=== PATIENT | female | born 1935 | race Caucasian/White ===

== ENCOUNTER 2018-07-14 09:23 | Emergency (ER) | payer MEDICARE, OTHER ==
[2018-07-14 10:00] LABS: #Eosinphils 0.1 thou/uL (0.0-0.7); #Lymphocytes 1.1 thou/uL (1.20-3.40); #Monocytes 0.5 thou/uL (0.11-0.59); #Neutrophils 8.2 thou/uL (1.40-6.50); %Basophils 0.2 % (0.0-1.0); %Eosinophils 0.6 % (0.0-10.0); %Lymphocytes 11.1 % (21.0-51.0); %Monocytes 4.8 % (0.0-10.0); %Neutrophils 83.2 % (42.0-75.0); Hemoglobin 12.1 g/dL (12.0-16.0); Mean Corpuscular HGB CONC 31.1 g/dL (32.0-36.0); Mean Corpuscular Volume 90.1 fL (78.0-98.0); Mean Platelet Volume 8.9 fL (7.4-10.4); Platelet Count 329 thou/uL (130-400); RBC Distribution Width 13.1 % (11.5-14.5); Red Blood Cell (RBC) Count 4.32 mill/uL (4.20-5.40); White Blood Cell (WBC) Count 9.9 thou/uL (4.8-10.8)
[2018-07-14 10:21] LABS: ALT (SGPT) 26 U/L (8-55); AST (SGOT) 38 U/L (5-34); Albumin 3.8 g/dL (3.4-4.8); Alkaline Phosphatase 289 U/L (40-150); Anion Gap 16 mmol/L (10-20); BUN (Urea Nitrogen) 15 mg/dL (9.8-20.1); Bilirubin, Total 0.5 mg/dL (0.2-1.2); Calc. Creatinine Clearance 0 mL/min (70-130); Calcium 10.4 mg/dL (7.8-10.44); Carbon Dioxide 28 mmol/L (23-31); Chloride 97 mmol/L (98-107); Estimated GFR-MDRD 62; Globulin 3.8 g/dL (2.4-3.5); Glucose 130 mg/dL (83-110); Lipase 27 U/L (8-78); Potassium 3.4 mmol/L (3.5-5.1); Protein, Total 7.6 g/dL (6.0-8.3); Sodium 138 mmol/L (136-145)
[2018-07-14] MEDS ORDERED: Ondansetron PF 4 MG/2 ML Vial ONE (11:11)
[2018-07-14 11:27] LABS: Bilirubin Small (Negative); Blood, Urine Negative (Negative); Clarity CLOUDY (Clear); Glucose, Urine (Dipstick) Negative (Negative); Leukocyte Large (Negative); Nitrite Negative (Negative); Protein, Urine (Dipstick) Trace mg/dL (Neg-Trace); Specific Gravity, Urine 1.012 (1.002-1.036); pH, Urine 6.5 (5.0-9.0)
[2018-07-14 11:28] LABS: Hyaline Casts/LPF 7-10 HYALINE CAST LPF (0-3 Hyaline); Pathc Cast-AUWi Flag 2.32 (0-2.49); WBC/HPF 21-50 HPF (0-3)
[2018-07-14 11:40] LABS: Bacteria/HPF 1+ HPF (None Seen)
== END 2018-07-14 12:45 | disposition home or self-care (01) ==
LOC: ERS 09:23
DX: R11.2 Nausea with vomiting, unspecified (principal); R19.7 Diarrhea, unspecified; E78.5 Hyperlipidemia, unspecified; I10 Essential (primary) hypertension
CPT/HCPCS: 36415; 80053; 81003; 81015; 82274; 83690; 85025; 96361; 96374; J2405

== ENCOUNTER 2018-09-14 16:48 | Emergency (ER) | payer MEDICARE, OTHER ==
[2018-09-14] MEDS ORDERED: Lidocaine 1% w/Epinephrine 1:100K 20 ML VIAL ONE (17:09)
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
[2018-09-14] MEDS ORDERED: Bacitracin Zinc 1 Packet ONE (18:01)
== END 2018-09-14 18:21 | disposition home or self-care (01) ==
LOC: ERS 16:48
DX: S51.811A Laceration without foreign body of right forearm, initial encounter (principal); S80.02XA Contusion of left knee, initial encounter; S90.01XA Contusion of right ankle, initial encounter; E78.5 Hyperlipidemia, unspecified; I10 Essential (primary) hypertension; Z79.82 Long term (current) use of aspirin; Z79.899 Other long term (current) drug therapy; V43.52XA Car driver injured in collision with other type car in traffic accident, initial encounter
CPT/HCPCS: 12002; 93005; J2001

== ENCOUNTER 2018-09-16 18:21 | Emergency (ER) | payer MEDICARE ==
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
--- NOTE | 2018-09-16 20:22 | RAD ---
THREE VIEWS RIGHT SHOULDER: 09/16/18 HISTORY: Pain. AP internally, externally and scapular Y-views right shoulder obtained. Three views right shoulder demonstrate no evidence of right shoulder fractures, subluxations or bony lesions. IMPRESSION: Normal three views right shoulder. POS: [facility]
== END 2018-09-16 20:45 | disposition home or self-care (01) ==
LOC: ERS 18:21
DX: S00.03XA Contusion of scalp, initial encounter (principal); M25.511 Pain in right shoulder; E78.5 Hyperlipidemia, unspecified; I10 Essential (primary) hypertension; G89.29 Other chronic pain; V49.9XXA Car occupant (driver) (passenger) injured in unspecified traffic accident, initial encounter
CPT/HCPCS: 70450

== ENCOUNTER 2018-09-26 11:07 | Emergency (ER) | payer MEDICARE | END 2018-09-26 11:59 | disposition home or self-care (01) | LOC: ERS 11:07 | DX: S51.811D Laceration without foreign body of right forearm, subsequent encounter (principal); E78.5 Hyperlipidemia, unspecified; I10 Essential (primary) hypertension; X58.XXXD Exposure to other specified factors, subsequent encounter ==

== ENCOUNTER 2020-06-03 12:05 | Inpatient (IN) | payer MEDICARE ==
[2020-06-03] MEDS ORDERED: Diltiazem 125 MG/25 ML ONE ×2 (12:26→15:38)
[2020-06-03] MEDS ORDERED: Acetaminophen 500 MG TAB ONE (12:26)
--- NOTE | 2020-06-03 12:52 | RAD ---
PORTABLE CHEST: Date: 06/03/2020 HISTORY: Fever and cough. FINDINGS: There is hazy infiltrate in the left lower lobe. Borderline cardiomegaly. Vascularity is upper normal . No significant effusion. IMPRESSION: Left lower lung infiltrate. POS: [facility]
[2020-06-03 13:02] LABS: INR-International Normal Ratio 1.3; PTT 39.6 sec (22.9-36.1); Prothrombin Time 16.9 sec (12.0-14.7)
[2020-06-03 13:08] LABS: Hemoglobin 9.7 g/dL (12.0-16.0); Mean Corpuscular Hemoglobin 31.1 pg (27.0-31.0); Mean Corpuscular Volume 94.2 fL (78.0-98.0); Mean Platelet Volume 9.4 fL (7.4-10.4); Platelet Count 183 thou/uL (130-400); RBC Distribution Width 12.1 % (11.5-14.5); White Blood Cell (WBC) Count 13.7 thou/uL (4.8-10.8)
[2020-06-03 13:11] LABS: ALT (SGPT) 23 U/L (8-55); AST (SGOT) 35 U/L (5-34); Albumin 1.7 g/dL (3.4-4.8); Alkaline Phosphatase 52 U/L (40-110); Anion Gap 15 mmol/L (10-20); BUN (Urea Nitrogen) 16 mg/dL (9.8-20.1); Bilirubin, Total 0.2 mg/dL (0.2-1.2); CK (CPK) 258 U/L (29-168); Calc. Creatinine Clearance 0 mL/min (70-130); Carbon Dioxide 10 mmol/L (23-31); Chloride 79 mmol/L (98-107); Globulin 1.1 g/dL (2.4-3.5); Glucose 78 mg/dL (83-110); Protein, Total 2.8 g/dL (6.0-8.3)
[2020-06-03 13:27] LABS: Band 65 % (5-11); Lymphocytes 4 % (21-51); MDiff Complete? YES; Monocytes 1 % (0-10); Neutrophil 30 % (42-75); Platelet Morphology Comment Appears Adequate; Polychromasia SLIGHT = 2-3 cells (100X) (0-2/hpf); Reflex for Review?? YES
[2020-06-03 13:37] LABS: Potassium 2.7 mmol/L (3.5-5.1); Sodium 101 mmol/L (136-145)
[2020-06-03 13:48] LABS: Bacteria/HPF None Seen HPF (None Seen); Bilirubin Negative (Negative); Blood, Urine 2+ (Negative); Clarity Clear (Clear); Glucose, Urine (Dipstick) Normal (Negative); Ketone, Urine Negative (Negative); Leukocyte 25 Leu/uL (Negative); Nitrite Negative (Negative); Protein, Urine (Dipstick) 30 mg/dL (Neg-Trace); RBC/HPF 0-3 HPF (0-3); Specific Gravity, Urine 1.007 (1.002-1.036); Squamous Epithelial 0-3 HPF (0-3); Urobilinogen Normal mg/dL (Less than 2); WBC/HPF 0-3 HPF (0-3); pH, Urine 6.5 (5.0-9.0)
[2020-06-03] MEDS ORDERED: Piperacillin/Tazobactam 4.5 GM VIAL ONE (14:24)
[2020-06-03] MEDS ORDERED: Magnesium 2 GM/50 ML BAG (IN WATER) ONE (14:24)
[2020-06-03] MEDS ORDERED: Vancomycin 1 GM/200 ML BAG ONE (14:24)
--- NOTE | 2020-06-03 14:39 | CT ---
CT HEAD WITHOUT CONTRAST: INDICATION: Mental status change. Fever. COMPARISON: Comparison is made to head CT 09/16/2018. FINDINGS: Mild cortical volume is stable. Mild chronic ischemic white matter changes appear stable. No eviden ce of mass, hemorrhage, or acute infarct. No interval change. Paranasal sinuses show mucosal opacif ication of the left sphenoid sinus. IMPRESSION: 1. No acute intracranial process. 2. Mucosal opacification of the left sphenoid sinus. POS: [facility]
[2020-06-03] MEDS ORDERED: Potassium Chloride 20 MEQ in Premix Bag 1 BAG IVPB SCH ×2 (14:45→20:00)
[2020-06-03] MEDS ORDERED: Potassium Chloride 20 MEQ TAB ONE (15:16)
[2020-06-03] MEDS ORDERED: Diltiazem 125 MG in Sodium Chloride 0.9% 100 ML IVPB SCH (15:45)
[2020-06-03 16:34] LABS: Troponin I 0.053 ng/mL (< 0.028)
[2020-06-03 16:41] LABS: Anion Gap 18 mmol/L (10-20); BUN (Urea Nitrogen) 20 mg/dL (9.8-20.1); Calc. Creatinine Clearance 0 mL/min (70-130); Calcium 8.3 mg/dL (7.8-10.44); Carbon Dioxide 22 mmol/L (23-31); Chloride 103 mmol/L (98-107); Glucose 133 mg/dL (83-110); Potassium 2.4 mmol/L (3.5-5.1); Sodium 141 mmol/L (136-145)
[2020-06-03] MEDS ORDERED: Magnesium 2 GM/50 ML 2 GM in Premix Bag 1 BAG IVPB SCH (16:45)
[2020-06-03 16:58] LABS: SARS-CoV-2 NAA Rapid Test DETECTED (NotDetected)
[2020-06-03] MEDS: cefTRIAXone\\ROCEPHIN 1 GM in Sodium Chloride 0.9% 100 ML IVPB SCH (17:00)
[2020-06-03] MEDS ORDERED: cefTRIAXone\\ROCEPHIN 1 GM VIAL ONE (18:30)
--- NOTE | 2020-06-03 18:58 | HP ---
PRIMARY CARE PHYSICIAN: Unknown. CHIEF COMPLAINT: Cough and congestion. HISTORY OF PRESENT ILLNESS: Please note that the history of present illness is extremely limited as the patient is a bit confused and there is no family at the bedside and the remainder of the history of present illness is taken from discussion with the nursing staff and review of the records, but Ms. Bojorquez is a pleasant -[id number] female, who has a history of hyperlipidemia and hypertension as well as chronic back pain. She was brought to the emergency room due to complaints of cough and congestion as well as some shortness of breath. She was brought to the emergency room and was evaluated and found to be in atrial fibrillation with rapid ventricular response. A chest x-ray was done, which demonstrated findings consistent with a left lower lobe pneumonia. Later, blood work returned and the results demonstrated that she had a profound hyponatremia with a sodium of 101, and also hypokalemic. And for this reason, she is being admitted. Otherwise, the patient is actually awake and alert, she is sitting in the bed. She appears to be in no acute distress. She is able to converse with me. She denies feeling short of breath at this time. Her only complaint is some pain in her arms, where she had some blood drawn. REVIEW OF SYSTEMS: Unreliable. PAST MEDICAL HISTORY: Taken from the emergency room records and includes hyperlipidemia, hypertension, and chronic back pain. PAST SURGICAL HISTORY: She has had a cholecystectomy, hysterectomy, as well as tonsillectomy and history of lumbar spinal surgery. SOCIAL HISTORY: She denies any alcohol use or drug use. No history of any smoking. ALLERGIES: NO KNOWN DRUG ALLERGIES. FAMILY HISTORY: Unobtainable. CURRENT MEDICATIONS: These are taken from the emergency room records include: 1. Estradiol 0.5 mg p.o. daily. 2. Metformin 500 mg once daily. 3. Amlodipine 10 mg daily. 4. Simvastatin 40 mg daily. 5. Oxybutynin 5 mg p.o. daily. 6. Chlorthalidone 25 mg once daily. 7. Irbesartan 300 mg daily. PHYSICAL EXAMINATION: GENERAL: She is alert and oriented to person. She believes she is in [facility]. She was able to tell me that the month is 1 and when asked about the year she said 20 and then 1. VITAL SIGNS: Blood pressure was 149/76, heart rate 125, respiratory rate of 33, temperature is 100.6, and O2 saturation was 94% on room air. HEENT: Pupils are equal, round, and reactive. Extraocular muscles are intact. Her sclerae anicteric. NECK: There is no jugular venous distention. LUNGS: She has rales primarily in the left base. There was some rhonchi as well, but no wheezing. CARDIOVASCULAR: Her heart rate is irregular and rapid. I did not appreciate any murmurs, clicks, or rubs. ABDOMEN: Soft. It is nontender, nondistended. Positive for bowel sounds. No rebound. No guarding. No organomegaly. EXTREMITIES: She has 1+ edema in the lower extremities. There is no calf tenderness. No joint effusions. NEUROLOGIC: She was able to move all of her extremities, the both the upper and lower extremities. SKIN AND INTEGUMENT: Essentially normal except for mild bruising in her upper extremities. LABORATORY RESULTS: White blood cell count 13.7, hemoglobin 9.7, hematocrit is 29.2, and platelet count was 183. INR 1.3. Chemistry; sodium 101, potassium 2.7, chloride is 79, CO2 is 10, BUN is 16, creatinine 0.55, glucose is 78, calcium 4.0, magnesium 1.0. Urinalysis was significant for leukocyte esterase and trace blood. On her chest x-ray, she did have some evidence of patchy infiltrate in the left lower base and slight cardiomegaly and that is by my reading. She had a CT scan of the brain showing no acute intracranial process. ASSESSMENT: This is a pleasant 85-year-old female who presents with cough and congestion and was found to have a left lower lobe pneumonia. She also has a profound hyponatremia as well as hypokalemia and hypomagnesemia. If the serum sodium is correct, she will need to be admitted to the ICU. I have already placed a call to the athletic training internship authorization rep. 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 We will defer initial management to Nephrology. I spoke with Dr. Abernathy, who says that he would come to assess her and since she is clinically more or less stable at this time, not to provide any interventions currently. 1. Atrial fibrillation with rapid ventricular response. She has been given a dose of Cardizem 20 mg IV. She continues to have an elevated heart rate and therefore, we will place her on a Cardizem drip. We will also get an echocardiogram should her COVID screen come back negative, and consideration will need to be made for anticoagulation. 2. Hypokalemia. We will need to replace possibly due to the thiazide diuretic use. 3. Hypomagnesemia. Also we will need to replace likely due to renal losses. 4. Left lower lobe pneumonia. This is likely a community-acquired pneumonia; therefore, we will place her on antibiotics for community-acquired pneumonia. 5. The patient will be placed on gastrointestinal prophylaxis. Job ID: [id number]
[2020-06-03 20:18] LABS: Troponin I 0.043 ng/mL (< 0.028)
[2020-06-04 04:49] VITALS: BMI 24.0
[2020-06-04 06:50] LABS: Anion Gap 16 mmol/L (10-20); BUN (Urea Nitrogen) 11 mg/dL (9.8-20.1); Calc. Creatinine Clearance 51 mL/min (70-130); Calcium 8.6 mg/dL (7.8-10.44); Carbon Dioxide 27 mmol/L (23-31); Chloride 97 mmol/L (98-107); Glucose 148 mg/dL (83-110); Sodium 138 mmol/L (136-145)
[2020-06-04 06:56] LABS: Potassium 2.1 mmol/L (3.5-5.1)
[2020-06-04] MEDS ORDERED: Magnesium Sulfate 4 GM in Sodium Chloride 0.9% 250 ML 250 ML IVPB SCH (09:15)
[2020-06-04] MEDS ORDERED: Potassium Bicarbonate/Cit Ac 20 MEQ TAB PO SCH ×3 (10:15→22:15)
[2020-06-04] MEDS ORDERED: Diltiazem 125 MG in Sodium Chloride 0.9% 100 ML IVPB SCH (11:15)
[2020-06-04] MEDS ORDERED: Diltiazem 125 MG/25 ML ONE (11:56)
--- NOTE | 2020-06-04 11:56 | CON ---
DATE OF CONSULTATION: HISTORY OF PRESENT ILLNESS: An 85-year-old woman, with no apparent cardiac history, who was admitted with altered mental status and COVID and was noted to have a rapid irregular heart rate. The patient is unable to give a coherent history. She was admitted last night with COVID pneumonia and altered mental status. The patient was noted to have a rapid heart rate. PAST MEDICAL HISTORY: Hypertension, dyslipidemia. PAST SURGICAL HISTORY: Cholecystectomy, hysterectomy, and spinal surgery. SOCIAL HISTORY: Nonsmoker. MEDICATIONS: See nursing list. PHYSICAL EXAMINATION: Deferred due to COVID. Blood pressure is 144/65, heart rate is 100. Physical examination is deferred. LABORATORY RESULTS: Sodium 130, potassium 2.1, chloride 97, bicarbonate 27, BUN 11, and creatinine is 0.76. troponin was 0.043. BNP is 44. White blood cell count 13.7, hemoglobin 9.7 EKG sinus tachycardia with frequent premature atrial contractions. Telemetry. Narrow complex tachycardia. IMPRESSION: 1. Tachycardia, possible multifocal atrial tachycardia 2. COVID pneumonia. 3. Hypokalemia. 4. History of hypertension. This patient presents with COVID pneumonia. She is in some rapid tachycardia on telemetry monitoring. From a cardiac standpoint, I would recommend IV Cardizem to control her heart rate. We will monitor to see if there is any evidence of atrial fibrillation. Continue supportive care. We will follow this patient with you through her hospitalization. Job ID: [id number] MTDD
[2020-06-04] MEDS: Potassium Chloride 40 MEQ in Sodium Chloride 0.9% 250 ML 250 ML IVPB SCH ×2 (12:34→23:04)
[2020-06-04] MEDS ORDERED: Electrolyte Replacement Protocol 1 EACH FS SCH (13:00)
[2020-06-04] MEDS ORDERED: Electrolyte Replacement Protocol FS PRN (13:15)
[2020-06-04 18:24] LABS: Anion Gap 18 mmol/L (10-20); BUN (Urea Nitrogen) 10 mg/dL (9.8-20.1); Calc. Creatinine Clearance 52 mL/min (70-130); Calcium 9.3 mg/dL (7.8-10.44); Carbon Dioxide 28 mmol/L (23-31); Chloride 95 mmol/L (98-107); Glucose 165 mg/dL (83-110); Magnesium 2.1 mg/dL (1.6-2.6); Sodium 138 mmol/L (136-145)
[2020-06-04 18:28] LABS: Potassium 2.5 mmol/L (3.5-5.1)
--- NOTE | 2020-06-04 21:16 | PDOC.HOSPP ---
- Subjective Encounter Date: 06/04/20 Encounter Time: 17:00 Subjective: Patient seen and examined for pneumonia, electrolyte abnormality and cardiac arrhythmia. Symptomatic lipids much better. Denies any chest pain or shortness of breath. On Cardizem drip. - Objective Vital Signs & Weight: Weight Weight 126 lb 15.78 oz Result Diagrams: 06/03/20 12:39 06/04/20 17:48 Additional Labs: Abnormal Lab Results - Last 48 hrs 06/03/20 12:39: WBC 13.7 H, RBC 3.10 L, Hgb 9.7 L, Hct 29.2 L, MCH 31.1 H, Neutrophils % (Manual) 30 L, Band Neuts % (Manual) 65 H, Lymphocytes % (Manual) 4 L 06/03/20 12:39: TSH 3rd Generation 0.3112 L 06/03/20 13:18: Urine Protein 30 A, Urine Blood 2+ A, Ur Leukocyte Esterase 25 A 06/03/20 13:21: SARS-CoV-2 Rap RNA(RT-PCR) DETECTED A* 06/03/20 15:47: Troponin I 0.053 H 06/03/20 15:47: Potassium 2.4 L*, Carbon Dioxide 22 L, Uric Acid 7.0 H 06/03/20 19:36: Troponin I 0.043 H 06/04/20 06:02: Potassium 2.1 L*, Chloride 97 L 06/04/20 17:48: Potassium 2.5 L*, Chloride 95 L, Phosphorus 1.0 L Microbiology - Entire Visit 06/03/20 13:18 Urine voided Urine Culture - Preliminary 06/03/20 12:39 Venous blood - Right Arm Blood Culture - Preliminary Specimen has been received and culture in progress. No Growth to date. 06/03/20 12:37 Venous blood - Left Arm Blood Culture - Preliminary Specimen has been received and culture in progress. No Growth to date. EKG Reviewed by me: Yes (Tachyarrhythmia on telemetry) Hospitalist ROS - Review of Systems Respiratory: reports: cough, dry, SOB with excertion Gastrointestinal: denies: nausea, vomiting, abdominal pain, diarrhea, constipation, melena, hematochezia, other - Medication Medications: Active Medications Generic Name Dose Route Start Last Admin Trade Name Freq PRN Reason Stop Dose Admin Ceftriaxone Sodium 1 gm/ 100 mls @ 200 mls/hr 06/03/20 17:00 06/03/20 17:00 Sodium Chloride IVPB 100 mls Q24HR JIMBO Administration Diltiazem HCl 125 mg/ Sodium 125 mls @ 10 mls/hr 06/04/20 11:15 06/04/20 12:35 Chloride IVPB 125 mls INF JIMBO Administration Protocol 10 MG/HR Sodium Chloride 10 ml 06/04/20 09:00 06/04/20 08:30 Flush - Normal Saline 10 Ml Syringe IVF 10 ml Q12HR JIMBO Administration - Exam General Appearance: ill appearing Neck: supple, symmetric, no JVD, no thyromegaly Heart: no gallops, no rubs Heart - other findings: Regularly irregularNo rubs or gallops Respiratory: normal chest expansion, rales, rhonchi, tachypneic Gastrointestinal: soft, normal bowel sounds, no guarding, no rigidity Extremities: no cyanosis, no clubbing Neurological: no new deficit Musculoskeletal: generalized weakness Psychiatric: normal affect, A&O x 3 Hosp A/P - Plan DVT proph w/SCDs Sepsis due to COVID 19 pneumonia Tachyarrhythmia probably due to multifocal atrial tachycardia Generalized weakness Hypokalemia Hypophosphatemia Hypertension Hyponatremia and hypomagnesemia were due to lab error Plan: Continue telemetry monitoring. Will consult cardiology. Cardizem drip. Replace potassium and phosphorus. Recheck labs later today. Check inflammatory markers. DVT prophylaxis. Consult physical therapy. Home health care evaluation. Continue other medications as above
[2020-06-04] MEDS ORDERED: Potassium Phosphate 30 MMOL in Sodium Chloride 0.9% 500 ML IVPB SCH (22:30)
[2020-06-04] MEDS: cefTRIAXone\\ROCEPHIN 1 GM in Sodium Chloride 0.9% 100 ML IVPB SCH (23:25)
[2020-06-04] MEDS: Doxycycline 100 MG CAP PO SCH (23:26)
[2020-06-05 05:48] LABS: #Basophils 0.1 thou/uL (0.0-0.2); #Lymphocytes 0.8 thou/uL (1.20-3.40); #Monocytes 0.2 thou/uL (0.11-0.59); #Neutrophils 11.5 thou/uL (1.40-6.50); %Basophils 0.8 % (0.0-1.0); %Eosinophils 0.2 % (0.0-10.0); %Lymphocytes 6.6 % (21.0-51.0); %Monocytes 1.5 % (0.0-10.0); %Neutrophils 90.8 % (42.0-75.0); Hemoglobin 11.5 g/dL (12.0-16.0); Mean Corpuscular HGB CONC 33.3 g/dL (32.0-36.0); Mean Corpuscular Hemoglobin 31.3 pg (27.0-31.0); Mean Platelet Volume 9.3 fL (7.4-10.4); Platelet Count 235 thou/uL (130-400); RBC Distribution Width 12.2 % (11.5-14.5); Red Blood Cell (RBC) Count 3.67 mill/uL (4.20-5.40); White Blood Cell (WBC) Count 12.7 thou/uL (4.8-10.8)
[2020-06-05 06:15] LABS: ALT (SGPT) 66 U/L (8-55); AST (SGOT) 106 U/L (5-34); Albumin 3.2 g/dL (3.4-4.8); Alkaline Phosphatase 116 U/L (40-110); Anion Gap 20 mmol/L (10-20); BUN (Urea Nitrogen) 10 mg/dL (9.8-20.1); Bilirubin, Total 0.3 mg/dL (0.2-1.2); Calc. Creatinine Clearance 55 mL/min (70-130); Calcium 8.8 mg/dL (7.8-10.44); Carbon Dioxide 28 mmol/L (23-31); Chloride 96 mmol/L (98-107); Globulin 3.9 g/dL (2.4-3.5); Glucose 124 mg/dL (83-110); Magnesium 1.9 mg/dL (1.6-2.6); Phosphorus 2.8 mg/dL (2.3-4.7); Potassium 3.1 mmol/L (3.5-5.1); Protein, Total 7.1 g/dL (6.0-8.3); Sodium 141 mmol/L (136-145)
[2020-06-05] MEDS ORDERED: Magnesium 2 GM/50 ML 20 GM in Premix Bag 1 BAG IVPB SCH (06:45)
[2020-06-05] MEDS ORDERED: Potassium Chloride 20 MEQ TAB PO SCH (07:00)
[2020-06-05] MEDS: Potassium Bicarbonate/Cit Ac 20 MEQ TAB PO SCH ×3 (07:51→15:57)
[2020-06-05] MEDS: Saccharomyces boulardii 250 MG CAP PO SCH (07:52)
[2020-06-05] MEDS: Famotidine 20 MG TAB PO SCH ×2 (07:52→20:03)
[2020-06-05] MEDS: Doxycycline 100 MG CAP PO SCH ×2 (07:52→20:03)
[2020-06-05] MEDS ORDERED: Potassium Chloride 40 MEQ in Premix Bag 1 BAG IVPB SCH (09:00)
[2020-06-05] MEDS ORDERED: Saccharomyces boulardii 250 MG CAP PO SCH (09:00)
[2020-06-05] MEDS ORDERED: Enoxaparin Sodium 30 MG/0.3 ML SYRINGE SC SCH (09:00)
[2020-06-05] MEDS ORDERED: Albuterol 200 PUFF (6.7GM INHALER) INH PRN (09:03)
[2020-06-05] MEDS: Ascorbic Acid 500 mg Chewable Tablet PO SCH (09:45)
[2020-06-05] MEDS: Enoxaparin Sodium 40 MG/0.4 ML SYRINGE SC SCH (09:46)
[2020-06-05] MEDS: Dexamethasone 4 mg/ml Vial SLOW IVP SCH (09:46)
--- NOTE | 2020-06-05 13:44 | PQF ---
CLINICAL DOCUMENTATION CLARIFICATION FORM: Dear Dr. Carol Vazquez Date: 06/05/20 Please exercise your independent, professional judgment in responding to the clarification form. Clinical indicators are provided on the bottom of this form for your review. Please check appropriate box(es): [ ] Acute Respiratory Failure: [ ] with Hypoxia [ ] with Hypercapnia [ ] Acute On Chronic Respiratory Failure: [ ] with Hypoxia [ ] with Hypercapnia [ ] Acute Respiratory Failure due to: (etiology) [ ] Chronic Respiratory Failure only [ ] with Hypoxia [ ] with Hypercapnia [ ] Hypoxia [ ] Other diagnosis [ ] Unable to determine In addition, please specify: Present on Admission (POA): [ ] Yes [ ] No [ ] Unable to determine For continuity of documentation, please document condition throughout progress notes and discharge summary. Thank You. To be completed by CDI/Coding staff for physician review: CLINICAL INDICATORS - SIGNS / SYMPTOMS / LABS / RESULTS AND LOCATION IN MR Chest X- Ray impression : left lower lung infiltrate ( 06/03) Pulse 125, Resp 33, Temp 100.6, 94% 2L/NC; maximum temp 101, patient presents with cough that started 2 days ago, reports green mucous has been coming up since cough started. Final ED Dx: Left Lower Lobe Pneumonia, Afib w RVR, AMS, Hypokalemia, Hypomagnesemia ( ED Report/ ) 06/03 RISK FACTORS / RESULTS AND LOCATION IN MR Sepsis due to Covid 19 Pneumonia (Pn/ [facility]) 06/04 TREATMENTS / RESULTS AND LOCATION IN MR Supplemental oxygen (06/04 present) Continuous telemetry monitoring (06/04- present) Acute Respiratory Failure: ABG pH < 7.35 or > 7.45; Decreased oxygen saturation (<90% room air or < 95% on oxygen); PCO2 > 50 mm Hg; PO2 < 60 mm Hg; Labored or rapid respirations ARDS: Dx Criteria [[place] ARDS]: Respiratory symptoms within one week of a known clinical insult (e.g. shock, infection, surgery, trauma) Bilateral opacities in CXR/Chest CT not due to CHF or fluid THANK YOU! CDS Signature: Jacqui Figueredo RN Phone #: [phone] Date:05/17/2020 This is a permanent part of the Medical Record [facility]
[2020-06-05] MEDS: Zinc Sulfate 220 MG CAP PO SCH (15:56)
[2020-06-05] MEDS: cefTRIAXone\\ROCEPHIN 1 GM in Sodium Chloride 0.9% 100 ML IVPB SCH (15:57)
--- NOTE | 2020-06-05 18:23 | PDOC.HOSPP ---
- Subjective Encounter Date: 06/05/20 Encounter Time: 15:00 Subjective: Patient seen and examined for respiratory failure due to COVID-19 along with atrial arrhythmia and electrolyte abnormality. Symptomatically feeling better. Has mild dry cough. Short of breath on minimal exertion. Denies any chest pain or palpitations. - Objective Vital Signs & Weight: Vital Signs (12 hours) Temp Pulse Resp BP Pulse Ox 06/05/20 14:46 99 F 98 20 138/74 95 06/05/20 12:45 100.3 F H 97 20 152/73 H 100 06/05/20 09:46 83 06/05/20 08:27 99.9 F H 83 20 133/71 97 Weight Weight 126 lb 15.78 oz I&O: 06/04/20 06/05/20 06/06/20 06:59 06:59 06:59 Intake Total 910 810 Output Total 500 900 Balance 410 -90 Result Diagrams: 06/05/20 04:56 06/05/20 16:18 Additional Labs: Abnormal Lab Results - Last 48 hrs 06/03/20 19:36: Troponin I 0.043 H 06/04/20 06:02: Potassium 2.1 L*, Chloride 97 L 06/04/20 17:48: Potassium 2.5 L*, Chloride 95 L, Phosphorus 1.0 L 06/05/20 04:56: Potassium 3.1 L, Chloride 96 L, AST 106 H, ALT 66 H, Alkaline Phosphatase 116 H, Albumin 3.2 L, Globulin 3.9 H, Albumin/Globulin Ratio 0.8 L 06/05/20 04:56: WBC 12.7 H, RBC 3.67 L, Hgb 11.5 L, Hct 34.5 L, MCH 31.3 H, Neutrophils % 90.8 H, Lymphocytes % 6.6 L, Neutrophils # 11.5 H, Lymphocytes # 0.8 L 06/05/20 04:56: C-Reactive Protein 28.55 H 06/05/20 04:56: Ferritin 1986.51 H 06/05/20 04:56: D-Dimer 3.85 H Microbiology - Entire Visit 06/03/20 13:18 Urine voided Urine Culture - Final 06/03/20 12:39 Venous blood - Right Arm Blood Culture - Preliminary NO GROWTH AT 48 HOURS 06/03/20 12:37 Venous blood - Left Arm Blood Culture - Preliminary NO GROWTH AT 48 HOURS Radiology Reviewed by me: Yes (Chest x-rayleft lower lobe infiltrate) EKG Reviewed by me: Yes (Sinus rhythm with PACs) Hospitalist ROS - Review of Systems Cardiovascular: denies: chest pain, palpitations, orthopnea, paroxysmal noc. dyspnea, edema, light headedness, other Gastrointestinal: denies: nausea, vomiting, abdominal pain, diarrhea, constipation, melena, hematochezia, other - Medication Medications: Active Medications Generic Name Dose Route Start Last Admin Trade Name Garyq PRN Reason Stop Dose Admin Ascorbic Acid 1,000 mg 06/05/20 09:00 06/05/20 09:45 Ascorbic Acid 500 Mg Chewable Tablet PO 1,000 mg DAILY JIMBO Administration Dexamethasone 6 mg 06/05/20 09:00 06/05/20 09:46 Dexamethasone 4 Mg/Ml Vial SLOW IVP 6 mg DAILY JIMBO Administration Diltiazem HCl 120 mg 06/05/20 09:00 06/05/20 09:46 Diltiazem Cd 120 Mg Cap PO 120 mg DAILY JIMBO Administration Doxycycline Hyclate 100 mg 06/04/20 21:00 06/05/20 07:52 Doxycycline 100 Mg Cap PO 100 mg BID JIMBO Administration Enoxaparin Sodium 40 mg 06/05/20 09:00 06/05/20 09:46 Enoxaparin Sodium 40 Mg/0.4 Ml Syringe SC Not Given 899 JIMBO Famotidine 20 mg 06/05/20 09:00 06/05/20 07:52 Famotidine 20 Mg Tab PO 20 mg BID JIMBO Administration Ceftriaxone Sodium 1 gm/ 100 mls @ 200 mls/hr 06/03/20 17:00 06/05/20 15:57 Sodium Chloride IVPB 100 mls Q24HR JIMBO Administration Potassium Bicarbonate/Citric Acid 20 meq 06/05/20 08:00 06/05/20 15:57 Potassium Bicarbonate/Cit Ac 20 Meq Tab PO 20 meq TID-WM JIMBO Administration Saccharomyces Boulardii 250 mg 06/05/20 09:00 06/05/20 07:52 Saccharomyces Boulardii 250 Mg Cap PO 250 mg DAILY JIMBO Administration Saccharomyces Boulardii 250 mg 06/05/20 09:00 06/05/20 07:53 Saccharomyces Boulardii 250 Mg Cap PO Not Given DAILY JIMBO Sodium Chloride 10 ml 06/04/20 09:00 06/05/20 07:53 Flush - Normal Saline 10 Ml Syringe IVF 10 ml Q12HR JIMBO Administration Zinc Sulfate 220 mg 06/05/20 09:00 06/05/20 15:56 Zinc Sulfate 220 Mg Cap PO 220 mg DAILY JIMBO Administration - Exam General Appearance: ill appearing Neck: supple, no JVD Heart: RRR, no gallops, no rubs Respiratory: no wheezes, rales, rhonchi, tachypneic Gastrointestinal: soft, normal bowel sounds, no guarding, no rigidity Extremities: no cyanosis, no clubbing Skin: normal turgor, no lesions Neurological: no new deficit Musculoskeletal: generalized weakness Psychiatric: normal affect, A&O x 3 Hosp A/P - Plan DVT proph w/lovenox, DVT proph w/SCDs Acute hypoxic respiratory failure/sepsis with acute organ dysfunction due to COVID 19 pneumoniaPOA Tachyarrhythmia probably due to multifocal atrial tachycardia S/p Cardizem drip Generalized weakness Hypokalemia Hypophosphatemia Hypertension Hyponatremia and hypomagnesemia were due to lab error Plan: Cardizem drip discontinued. Oral Cardizem started. Will replace potassium which was 3.1 today. Replace magnesium. Other labs were reviewed. Continue Lovenox for DVT prophylaxis. Continue Decadron for pneumonia. Continue empiric antibiotics. Physical therapy. Reduce potassium to 20 MEQ p.o. daily. Monitor inflammatory markers. I discussed the plan of care with patient's granddaughter over the phone. Will consult palliative care.
[2020-06-05] MEDS: Oxybutynin 5 MG TAB PO SCH (20:03)
[2020-06-05] MEDS: Melatonin 3 MG TAB PO PRN (20:03)
[2020-06-06 05:58] LABS: ALT (SGPT) 70 U/L (8-55); AST (SGOT) 73 U/L (5-34); Albumin 3.4 g/dL (3.4-4.8); Alkaline Phosphatase 90 U/L (40-110); Anion Gap 19 mmol/L (10-20); BUN (Urea Nitrogen) 15 mg/dL (9.8-20.1); Bilirubin, Total 0.4 mg/dL (0.2-1.2); Calc. Creatinine Clearance 55 mL/min (70-130); Calcium 9.1 mg/dL (7.8-10.44); Carbon Dioxide 27 mmol/L (23-31); Chloride 94 mmol/L (98-107); Globulin 3.7 g/dL (2.4-3.5); Glucose 180 mg/dL (83-110); Phosphorus 1.3 mg/dL (2.3-4.7); Potassium 3.8 mmol/L (3.5-5.1); Protein, Total 7.1 g/dL (6.0-8.3); Sodium 136 mmol/L (136-145)
[2020-06-06 06:28] LABS: Band 21 % (5-11); Lymphocytes 7 % (21-51); MDiff Complete? YES; Mean Corpuscular HGB CONC 33.3 g/dL (32.0-36.0); Mean Corpuscular Hemoglobin 31.1 pg (27.0-31.0); Mean Corpuscular Volume 93.3 fL (78.0-98.0); Mean Platelet Volume 9.3 fL (7.4-10.4); Metamyelocyte 2 % (0-0); Monocytes 1 % (0-10); Myelocyte 4 % (0-0); Neutrophil 65 % (42-75); Platelet Count 230 thou/uL (130-400); Red Blood Cell (RBC) Count 3.54 mill/uL (4.20-5.40); White Blood Cell (WBC) Count 11.7 thou/uL (4.8-10.8)
[2020-06-06] MEDS ORDERED: Magnesium 2 GM/50 ML 2 GM in Premix Bag 1 BAG IVPB SCH (06:30)
[2020-06-06] MEDS: PHOS-NAK 1 PKT PACK PO SCH ×3 (07:23→14:17)
[2020-06-06] MEDS: Saccharomyces boulardii 250 MG CAP PO SCH ×2 (08:27→19:44)
[2020-06-06] MEDS: Famotidine 20 MG TAB PO SCH (08:27)
[2020-06-06] MEDS: Zinc Sulfate 220 MG CAP PO SCH (08:27)
[2020-06-06] MEDS: Potassium Bicarbonate/Cit Ac 20 MEQ TAB PO SCH (08:27)
[2020-06-06] MEDS: Doxycycline 100 MG CAP PO SCH ×2 (08:27→19:44)
[2020-06-06] MEDS: Ascorbic Acid 500 mg Chewable Tablet PO SCH (08:27)
[2020-06-06] MEDS: Enoxaparin Sodium 40 MG/0.4 ML SYRINGE SC SCH (08:27)
[2020-06-06] MEDS: Dexamethasone 4 mg/ml Vial SLOW IVP SCH (08:28)
[2020-06-06] MEDS: Oxybutynin 5 MG TAB PO SCH ×2 (08:28→19:44)
[2020-06-06] MEDS ORDERED: Potassium Phosphate 15 MMOL in Sodium Chloride 0.9% 250 ML 250 ML IVPB SCH (14:30)
[2020-06-06] MEDS: Loperamide HCl 2 MG CAP PO PRN ×3 (15:16→22:31)
[2020-06-06] MEDS: cefTRIAXone\\ROCEPHIN 1 GM in Sodium Chloride 0.9% 100 ML IVPB SCH (16:52)
--- NOTE | 2020-06-06 19:05 | PDOC.HOSPP ---
- Subjective Encounter Date: 06/06/20 Encounter Time: 16:00 Subjective: Patient seen and examined for respiratory failure/COVID-19 pneumonia. Confused. Intermittent diarrhea. Requiring supplemental oxygen. Was made DNR earlier today. No other overnight events. - Objective Vital Signs & Weight: Vital Signs (12 hours) Temp Pulse Resp BP Pulse Ox 06/06/20 15:26 98.2 F 96 20 161/64 H 96 06/06/20 11:24 98.2 F 95 20 160/74 H 96 06/06/20 08:20 98.2 F 95 21 H 163/76 H 96 Weight Weight 126 lb 15.78 oz I&O: 06/05/20 06/06/20 06/07/20 06:59 06:59 06:59 Intake Total 910 930 300 Output Total 500 900 Balance 410 30 300 Result Diagrams: 06/06/20 04:36 06/06/20 04:36 Additional Labs: Abnormal Lab Results - Last 48 hrs 06/05/20 04:56: Potassium 3.1 L, Chloride 96 L, AST 106 H, ALT 66 H, Alkaline Phosphatase 116 H, Albumin 3.2 L, Globulin 3.9 H, Albumin/Globulin Ratio 0.8 L 06/05/20 04:56: WBC 12.7 H, RBC 3.67 L, Hgb 11.5 L, Hct 34.5 L, MCH 31.3 H, Neutrophils % 90.8 H, Lymphocytes % 6.6 L, Neutrophils # 11.5 H, Lymphocytes # 0.8 L 06/05/20 04:56: C-Reactive Protein 28.55 H 06/05/20 04:56: Ferritin 1986.51 H 06/05/20 04:56: D-Dimer 3.85 H 06/06/20 04:36: Chloride 94 L, Phosphorus 1.3 L, AST 73 H, ALT 70 H, Globulin 3.7 H, Albumin/Globulin Ratio 0.9 L 06/06/20 04:36: WBC 11.7 H, RBC 3.54 L, Hgb 11.0 L, Hct 33.0 L, MCH 31.1 H, Band Neuts % (Manual) 21 H, Lymphocytes % (Manual) 7 L, Myelocytes % 4 H 06/06/20 04:36: C-Reactive Protein 16.52 H 06/06/20 04:36: Ferritin 1559.47 H 06/06/20 04:36: D-Dimer 2.61 H Microbiology - Entire Visit 06/06/20 06:50 Stool C. difficile GDH Antigen & Toxins - Final 06/03/20 13:18 Urine voided Urine Culture - Final 06/03/20 12:39 Venous blood - Right Arm Blood Culture - Preliminary NO GROWTH AT 48 HOURS 06/03/20 12:37 Venous blood - Left Arm Blood Culture - Preliminary NO GROWTH AT 48 HOURS EKG Reviewed by me: Yes (Sinus rhythm on telemetry) Hospitalist ROS - Review of Systems ROS unobtainable: due to mental status - Medication Medications: Active Medications Generic Name Dose Route Start Last Admin Trade Name Freq PRN Reason Stop Dose Admin Ascorbic Acid 1,000 mg 06/05/20 09:00 06/06/20 08:27 Ascorbic Acid 500 Mg Chewable Tablet PO 1,000 mg DAILY JIMBO Administration Dexamethasone 6 mg 06/05/20 09:00 06/06/20 08:28 Dexamethasone 4 Mg/Ml Vial SLOW IVP 6 mg DAILY JIMBO Administration Diltiazem HCl 120 mg 06/06/20 09:00 06/06/20 09:25 Diltiazem Cd 120 Mg Cap PO Not Given BID JIMBO Doxycycline Hyclate 100 mg 06/04/20 21:00 06/06/20 08:27 Doxycycline 100 Mg Cap PO 100 mg BID JIMBO Administration Enoxaparin Sodium 40 mg 06/05/20 09:00 06/06/20 08:27 Enoxaparin Sodium 40 Mg/0.4 Ml Syringe SC 40 mg 0900 JIMBO Administration Famotidine 20 mg 06/05/20 09:00 06/06/20 08:27 Famotidine 20 Mg Tab PO 20 mg BID JIMBO Administration Ceftriaxone Sodium 1 gm/ 100 mls @ 200 mls/hr 06/03/20 17:00 06/06/20 16:52 Sodium Chloride IVPB 100 mls Q24HR JIMBO Administration Loperamide HCl 2 mg 06/06/20 14:25 06/06/20 18:05 Loperamide Hcl 2 Mg Cap PO 2 mg PRN PRN Administration Diarrhea/Loose Stools Melatonin 3 mg 06/05/20 18:32 06/05/20 20:03 Melatonin 3 Mg Tab PO 3 mg HS PRN Administration Insomnia Oxybutynin Chloride 5 mg 06/05/20 21:00 06/06/20 08:28 Oxybutynin 5 Mg Tab PO 5 mg BID JIMBO Administration Potassium Bicarbonate/Citric Acid 20 meq 06/06/20 08:00 06/06/20 08:27 Potassium Bicarbonate/Cit Ac 20 Meq Tab PO 20 meq QAM-WM JIMBO Administration Sodium Chloride 10 ml 06/04/20 09:00 06/06/20 08:27 Flush - Normal Saline 10 Ml Syringe IVF 10 ml Q12HR JIMBO Administration Zinc Sulfate 220 mg 06/05/20 09:00 06/06/20 08:27 Zinc Sulfate 220 Mg Cap PO 220 mg DAILY JIMBO Administration - Exam General Appearance: ill appearing Neck: supple, symmetric, no JVD, no thyromegaly Heart: RRR, no gallops, no rubs, normal peripheral pulses Respiratory: no wheezes, normal chest expansion, rales, rhonchi Gastrointestinal: soft, non-tender, normal bowel sounds, no guarding, no rigidity Extremities: no cyanosis, no clubbing, no edema Psychiatric - other findings: Neuro/psychexam limited Hosp A/P - Plan DVT proph w/SCDs Acute hypoxic respiratory failure/sepsis with acute organ dysfunction due to COVID 19 pneumonia Tachyarrhythmia probably due to multifocal atrial tachycardia S/p Cardizem drip Generalized weakness Hypokalemia Hypophosphatemia Hypomagnesemia Hypertension Hyponatremia and hypomagnesemia on admission were due to lab error Plan: Continue ceftriaxone with doxycycline for pneumonia. Continue dexamethasone 6 mg daily with bronchodilators. Replace magnesium and phosphorus. C. difficile was negative. Inflammatory markers improving. Cardizem dose increased to 120 mg twice daily. Continue other medications as above. A.m. labs. DO NOT RESUSCITATE
[2020-06-06] MEDS: Acetaminophen 325 MG TAB PO PRN (22:31)
[2020-06-07] MEDS: Melatonin 3 MG TAB PO PRN (00:06)
[2020-06-07 05:51] LABS: ALT (SGPT) 82 U/L (8-55); AST (SGOT) 63 U/L (5-34); Albumin 3.5 g/dL (3.4-4.8); Alkaline Phosphatase 87 U/L (40-110); Anion Gap 19 mmol/L (10-20); BUN (Urea Nitrogen) 18 mg/dL (9.8-20.1); Bilirubin, Total 0.3 mg/dL (0.2-1.2); Calc. Creatinine Clearance 55 mL/min (70-130); Calcium 9.1 mg/dL (7.8-10.44); Carbon Dioxide 27 mmol/L (23-31); Chloride 95 mmol/L (98-107); Globulin 3.6 g/dL (2.4-3.5); Glucose 177 mg/dL (83-110); Magnesium 2.2 mg/dL (1.6-2.6); Potassium 3.8 mmol/L (3.5-5.1); Protein, Total 7.1 g/dL (6.0-8.3); Sodium 137 mmol/L (136-145)
[2020-06-07 05:53] LABS: Band 10 % (5-11); Hemoglobin 11.3 g/dL (12.0-16.0); Lymphocytes 13 % (21-51); MDiff Complete? YES; Mean Corpuscular HGB CONC 31.5 g/dL (32.0-36.0); Mean Corpuscular Hemoglobin 29.4 pg (27.0-31.0); Mean Corpuscular Volume 93.1 fL (78.0-98.0); Mean Platelet Volume 9.4 fL (7.4-10.4); Metamyelocyte 3 % (0-0); Monocytes 7 % (0-10); Myelocyte 1 % (0-0); Neutrophil 66 % (42-75); Platelet Count 297 thou/uL (130-400); Platelet Morphology Comment Appears Adequate; RBC Distribution Width 11.9 % (11.5-14.5); Red Blood Cell (RBC) Count 3.83 mill/uL (4.20-5.40); White Blood Cell (WBC) Count 12.5 thou/uL (4.8-10.8)
[2020-06-07 05:56] LABS: Phosphorus 2.7 mg/dL (2.3-4.7)
[2020-06-07] MEDS: Loperamide HCl 2 MG CAP PO PRN (07:57)
[2020-06-07] MEDS: Ascorbic Acid 500 mg Chewable Tablet PO SCH (07:57)
[2020-06-07] MEDS: Doxycycline 100 MG CAP PO SCH ×2 (07:57→21:19)
[2020-06-07] MEDS: Oxybutynin 5 MG TAB PO SCH (07:58)
[2020-06-07] MEDS: Zinc Sulfate 220 MG CAP PO SCH (07:58)
[2020-06-07] MEDS: Saccharomyces boulardii 250 MG CAP PO SCH ×2 (07:58→21:20)
[2020-06-07] MEDS: Enoxaparin Sodium 40 MG/0.4 ML SYRINGE SC SCH (07:59)
[2020-06-07] MEDS: Dexamethasone 4 mg/ml Vial SLOW IVP SCH (08:00)
[2020-06-07] MEDS: Potassium Bicarbonate/Cit Ac 20 MEQ TAB PO SCH (08:02)
--- NOTE | 2020-06-07 08:21 | PDOC.FMACP ---
Advance Care Planning - Problem (1) Pneumonia due to COVID-19 virus Status: Acute Code(s): U07.1 - COVID-19; J12.82 - PNEUMONIA DUE TO CORONAVIRUS DISEASE 2018 (2) Tachyarrhythmia Status: Acute Code(s): R00.0 - TACHYCARDIA, UNSPECIFIED (3) Declining functional status Status: Acute Code(s): R53.81 - OTHER MALAISE (4) Palliative care encounter Status: Acute Code(s): Z51.5 - ENCOUNTER FOR PALLIATIVE CARE (5) Confusion Status: Acute Code(s): R41.0 - DISORIENTATION, UNSPECIFIED - Note Participants: family, palliative care Summary: Palliative care has addressed Advanced Care Planning. The diagnosis, prognosis and goals of care were discussed. Appropriate forms and documentation to accomplish the goals of care were discussed. All questions were answered. No official MPOA, patient lacking medical capacity. As per [place] [employer] patient is decision maker, also communicating with patient daughter. Family elected to transition to [facility] Daughter confirms that if needed they would prefer to discharge home with home health/pt. Communicated with Dr Vazquez. Palliative care will sign off as goal of care addressed and confirmed, patient improving as no longer requires supplemental O2 but remains weak and confused and will most likely benefit with home health in home setting. If we can assist in the future with revisiting goal of care, complex decision making, or support/coping please re consult our team. Thank you for this very appropriate consult. Time Spent (mins): 30
--- NOTE | 2020-06-07 16:00 | PDOC.HOSPP ---
- Subjective Encounter Date: 06/07/20 Encounter Time: 11:00 Subjective: Patient seen and examined for respiratory failure/sepsis due to COVID-19. Requiring restraint. Intermittent confusion. Diarrhea improving. Events noted. - Objective Vital Signs & Weight: Vital Signs (12 hours) Temp Pulse Resp BP Pulse Ox 06/07/20 11:20 98.3 F 80 22 H 168/71 H 95 06/07/20 08:39 93 L 06/07/20 07:55 97.8 F 100 26 H 147/77 H 100 Weight Weight 126 lb 15.78 oz I&O: 06/06/20 06/07/20 06/08/20 06:59 06:59 06:59 Intake Total 930 690 Output Total 900 551 Balance 30 139 Result Diagrams: 06/07/20 04:35 06/07/20 04:35 Additional Labs: Abnormal Lab Results - Last 48 hrs 06/06/20 04:36: Chloride 94 L, Phosphorus 1.3 L, AST 73 H, ALT 70 H, Globulin 3.7 H, Albumin/Globulin Ratio 0.9 L 06/06/20 04:36: WBC 11.7 H, RBC 3.54 L, Hgb 11.0 L, Hct 33.0 L, MCH 31.1 H, Band Neuts % (Manual) 21 H, Lymphocytes % (Manual) 7 L, Myelocytes % 4 H 06/06/20 04:36: C-Reactive Protein 16.52 H 06/06/20 04:36: Ferritin 1559.47 H 06/06/20 04:36: D-Dimer 2.61 H 06/07/20 04:35: Chloride 95 L, AST 63 H, ALT 82 H, Globulin 3.6 H, Albumin/ Globulin Ratio 1.0 L 06/07/20 04:35: WBC 12.5 H, RBC 3.83 L, Hgb 11.3 L, Hct 35.7 L, MCHC 31.5 L, Lymphocytes % (Manual) 13 L, Myelocytes % 1 H Microbiology - Entire Visit 06/06/20 06:50 Stool C. difficile GDH Antigen & Toxins - Final 06/03/20 13:18 Urine voided Urine Culture - Final 06/03/20 12:39 Venous blood - Right Arm Blood Culture - Preliminary NO GROWTH AT 48 HOURS 06/03/20 12:37 Venous blood - Left Arm Blood Culture - Preliminary NO GROWTH AT 48 HOURS EKG Reviewed by me: Yes (Sinus rhythm on telemetry) Hospitalist ROS - Review of Systems ROS unobtainable: due to mental status - Medication Medications: Active Medications Generic Name Dose Route Start Last Admin Trade Name Freq PRN Reason Stop Dose Admin Acetaminophen 650 mg 06/04/20 21:23 06/06/20 22:31 Acetaminophen 325 Mg Tab PO 650 mg Q4H PRN Administration Headache/Fever or Mild Pain Ascorbic Acid 1,000 mg 06/05/20 09:00 06/07/20 07:57 Ascorbic Acid 500 Mg Chewable Tablet PO 1,000 mg DAILY JIMBO Administration Dexamethasone 6 mg 06/05/20 09:00 06/07/20 08:00 Dexamethasone 4 Mg/Ml Vial SLOW IVP 6 mg DAILY JIMBO Administration Diltiazem HCl 120 mg 06/06/20 09:00 06/07/20 07:57 Diltiazem Cd 120 Mg Cap PO 120 mg BID JIMBO Administration Doxycycline Hyclate 100 mg 06/04/20 21:00 06/07/20 07:57 Doxycycline 100 Mg Cap PO 100 mg BID JIMBO Administration Enoxaparin Sodium 40 mg 06/05/20 09:00 06/07/20 07:59 Enoxaparin Sodium 40 Mg/0.4 Ml Syringe SC 40 mg 0900 JIMBO Administration Ceftriaxone Sodium 1 gm/ 100 mls @ 200 mls/hr 06/03/20 17:00 06/06/20 16:52 Sodium Chloride IVPB 100 mls Q24HR JIMBO Administration Loperamide HCl 2 mg 06/06/20 14:25 06/07/20 07:57 Loperamide Hcl 2 Mg Cap PO 2 mg PRN PRN Administration Diarrhea/Loose Stools Melatonin 3 mg 06/05/20 18:32 06/07/20 00:06 Melatonin 3 Mg Tab PO 3 mg HS PRN Administration Insomnia Oxybutynin Chloride 5 mg 06/05/20 21:00 06/07/20 07:58 Oxybutynin 5 Mg Tab PO 5 mg BID JIMBO Administration Pantoprazole Sodium 40 mg 06/07/20 09:00 06/07/20 07:57 Pantoprazole 40 Mg Tab PO 40 mg DAILY JIMBO Administration Potassium Bicarbonate/Citric Acid 20 meq 06/06/20 08:00 06/07/20 08:02 Potassium Bicarbonate/Cit Ac 20 Meq Tab PO 20 meq QAM-WM JIMBO Administration Saccharomyces Boulardii 250 mg 06/06/20 21:00 06/07/20 07:58 Saccharomyces Boulardii 250 Mg Cap PO 250 mg BID JIMBO Administration Sodium Chloride 10 ml 06/04/20 09:00 06/07/20 07:59 Flush - Normal Saline 10 Ml Syringe IVF 10 ml Q12HR JIMBO Administration Zinc Sulfate 220 mg 06/05/20 09:00 06/07/20 07:58 Zinc Sulfate 220 Mg Cap PO 220 mg DAILY JIMBO Administration - Exam General Appearance: ill appearing Neck: supple, no JVD Heart: RRR, no gallops Respiratory: rales, rhonchi Gastrointestinal: soft, no guarding, no rigidity Extremities: no cyanosis, no clubbing Neurological - other findings: Neuro/psychexam limited due to current mentation Hosp A/P - Plan DVT proph w/lovenox, DVT proph w/SCDs Acute hypoxic respiratory failure/sepsis with acute organ dysfunction due to COVID 19 pneumonia Tachyarrhythmia probably due to multifocal atrial tachycardia S/p Cardizem drip Generalized weakness Hypokalemia Hypophosphatemia Hypomagnesemia Hypertension Hyponatremia and hypomagnesemia on admission were due to lab error Plan: Continue supportive care. Will discontinue ceftriaxone after today's dose. Continue doxycycline. Continue Decadron. Wean O2 as tolerated. Heart rate controlled with Cardizem. Continue potassium replacement. Continue other medications as above. Recheck labs with inflammatory markers in a.m. 06/07 Continue ceftriaxone with doxycycline for pneumonia. Continue dexamethasone 6 mg daily with bronchodilators. Replace magnesium and phosphorus. C. difficile was negative. Inflammatory markers improving. Cardizem dose increased to 120 mg twice daily. Continue other medications as above. A.m. labs. DO NOT RESUSCITATE
[2020-06-07] MEDS: cefTRIAXone\\ROCEPHIN 1 GM in Sodium Chloride 0.9% 100 ML IVPB SCH (16:09)
[2020-06-07] MEDS ORDERED: Lorazepam 2 MG/ML VIAL SLOW IVP PRN (16:35)
[2020-06-08 05:33] LABS: Phosphorus 2.3 mg/dL (2.3-4.7)
[2020-06-08 05:37] LABS: ALT (SGPT) 65 U/L (8-55); AST (SGOT) 33 U/L (5-34); Albumin 3.6 g/dL (3.4-4.8); Alkaline Phosphatase 80 U/L (40-110); Anion Gap 17 mmol/L (10-20); BUN (Urea Nitrogen) 20 mg/dL (9.8-20.1); Bilirubin, Total 0.3 mg/dL (0.2-1.2); CRP (Inflammatory) 3.38 mg/dL (= or < 0.5); Calc. Creatinine Clearance 52 mL/min (70-130); Calcium 9.5 mg/dL (7.8-10.44); Carbon Dioxide 26 mmol/L (23-31); Chloride 96 mmol/L (98-107); Globulin 3.4 g/dL (2.4-3.5); Glucose 174 mg/dL (83-110); Potassium 4.5 mmol/L (3.5-5.1); Sodium 134 mmol/L (136-145)
[2020-06-08 05:51] LABS: Lymphocytes 16 % (21-51); MDiff Complete? YES; Mean Corpuscular HGB CONC 32.6 g/dL (32.0-36.0); Mean Corpuscular Hemoglobin 30.3 pg (27.0-31.0); Mean Corpuscular Volume 93.1 fL (78.0-98.0); Mean Platelet Volume 9.4 fL (7.4-10.4); Metamyelocyte 3 % (0-0); Monocytes 4 % (0-10); Myelocyte 2 % (0-0); Neutrophil 73 % (42-75); Platelet Count 337 thou/uL (130-400); Platelet Morphology Comment Appears Adequate; RBC Distribution Width 11.7 % (11.5-14.5); RBC Morphology Normal; Reactive Lymphocytes 2 % (0-10); Red Blood Cell (RBC) Count 3.94 mill/uL (4.20-5.40); White Blood Cell (WBC) Count 14.2 thou/uL (4.8-10.8)
[2020-06-08] MEDS: Doxycycline 100 MG CAP PO SCH ×2 (08:19→19:52)
[2020-06-08] MEDS: Saccharomyces boulardii 250 MG CAP PO SCH ×2 (08:19→19:52)
[2020-06-08] MEDS: Potassium Bicarbonate/Cit Ac 20 MEQ TAB PO SCH (08:20)
[2020-06-08] MEDS: Zinc Sulfate 220 MG CAP PO SCH (08:20)
[2020-06-08] MEDS: Ascorbic Acid 500 mg Chewable Tablet PO SCH (08:20)
[2020-06-08] MEDS: Dexamethasone 4 mg/ml Vial SLOW IVP SCH (08:20)
[2020-06-08] MEDS: Enoxaparin Sodium 40 MG/0.4 ML SYRINGE SC SCH (08:21)
--- NOTE | 2020-06-08 15:56 | PDOC.HOSPP ---
- Subjective Encounter Date: 06/08/20 Encounter Time: 11:30 Subjective: Patient seen and examined for sepsis/respiratory failure due to COVID-19 pneumonia. Confused. Inflammatory markers improving. No other overnight events. - Objective Vital Signs & Weight: Vital Signs (12 hours) Temp Pulse Resp BP Pulse Ox 06/08/20 13:52 98.4 F 93 20 157/91 H 96 06/08/20 08:35 98.2 F 81 16 142/66 H 96 06/08/20 04:20 151/96 H Weight Weight 126 lb 15.78 oz I&O: 06/07/20 06/08/20 06/09/20 06:59 06:59 06:59 Intake Total 690 1260 Output Total 551 Balance 139 1260 Result Diagrams: 06/08/20 04:42 06/08/20 04:42 Additional Labs: Abnormal Lab Results - Last 48 hrs 06/07/20 04:35: Chloride 95 L, AST 63 H, ALT 82 H, Globulin 3.6 H, Albumin/Gl obulin Ratio 1.0 L 06/07/20 04:35: WBC 12.5 H, RBC 3.83 L, Hgb 11.3 L, Hct 35.7 L, MCHC 31.5 L, Lymphocytes % (Manual) 13 L, Myelocytes % 1 H 06/08/20 04:42: Sodium 134 L, Chloride 96 L, ALT 65 H, C-Reactive Protein 3.38 H, Albumin/Globulin Ratio 1.1 L 06/08/20 04:42: Ferritin 612.27 H 06/08/20 04:42: D-Dimer 1.61 H 06/08/20 04:42: WBC 14.2 H, RBC 3.94 L, Lymphocytes % (Manual) 16 L, Myelocytes % 2 H Microbiology - Entire Visit 06/03/20 12:39 Venous blood - Right Arm Blood Culture - Final NO GROWTH IN 5 DAYS 06/03/20 12:37 Venous blood - Left Arm Blood Culture - Final NO GROWTH IN 5 DAYS 06/06/20 06:50 Stool C. difficile GDH Antigen & Toxins - Final 06/03/20 13:18 Urine voided Urine Culture - Final EKG Reviewed by me: Yes (Sinus rhythm on telemetry) Hospitalist ROS - Review of Systems ROS unobtainable: due to mental status - Medication Medications: Active Medications Generic Name Dose Route Start Last Admin Trade Name Freq PRN Reason Stop Dose Admin Acetaminophen 650 mg 06/04/20 21:23 06/06/20 22:31 Acetaminophen 325 Mg Tab PO 650 mg Q4H PRN Administration Headache/Fever or Mild Pain Ascorbic Acid 1,000 mg 06/05/20 09:00 06/08/20 08:20 Ascorbic Acid 500 Mg Chewable Tablet PO 1,000 mg DAILY JIMBO Administration Dexamethasone 6 mg 06/05/20 09:00 06/08/20 08:20 Dexamethasone 4 Mg/Ml Vial SLOW IVP 6 mg DAILY JIMBO Administration Doxycycline Hyclate 100 mg 06/04/20 21:00 06/08/20 08:19 Doxycycline 100 Mg Cap PO 100 mg BID JIMBO Administration Enoxaparin Sodium 40 mg 06/05/20 09:00 06/08/20 08:21 Enoxaparin Sodium 40 Mg/0.4 Ml Syringe SC 40 mg 0900 JIMBO Administration Loperamide HCl 2 mg 06/06/20 14:25 06/07/20 07:57 Loperamide Hcl 2 Mg Cap PO 2 mg PRN PRN Administration Diarrhea/Loose Stools Lorazepam 0.25 mg 06/07/20 16:35 06/07/20 17:19 Lorazepam 2 Mg/Ml Vial SLOW IVP 0.25 mg Q6H PRN Administration Anxiety/Agitation Melatonin 3 mg 06/05/20 18:32 06/07/20 00:06 Melatonin 3 Mg Tab PO 3 mg HS PRN Administration Insomnia Oxybutynin Chloride 5 mg 06/05/20 21:00 06/07/20 07:58 Oxybutynin 5 Mg Tab PO 5 mg BID JIMBO Administration Pantoprazole Sodium 40 mg 06/07/20 09:00 06/08/20 08:19 Pantoprazole 40 Mg Tab PO 40 mg DAILY JMIBO Administration Saccharomyces Boulardii 250 mg 06/06/20 21:00 06/08/20 08:19 Saccharomyces Boulardii 250 Mg Cap PO 250 mg BID JIMBO Administration Sodium Chloride 10 ml 06/04/20 09:00 06/08/20 08:21 Flush - Normal Saline 10 Ml Syringe IVF 10 ml Q12HR JIMBO Administration Zinc Sulfate 220 mg 06/05/20 09:00 06/08/20 08:20 Zinc Sulfate 220 Mg Cap PO 220 mg DAILY JIMBO Administration - Exam General Appearance: ill appearing Heart: RRR, no gallops Respiratory: no wheezes, rales, rhonchi Gastrointestinal: no guarding, no rigidity Extremities: no cyanosis, no clubbing Neurological: no new deficit Neurological - other findings: Neuro/psychexam limited due to current mentation Hosp A/P - Plan DVT proph w/lovenox, DVT proph w/SCDs Acute hypoxic respiratory failure/sepsis with acute organ dysfunction due to COVID 19 pneumonia Tachyarrhythmia probably due to multifocal atrial tachycardia S/p Cardizem drip Generalized weakness Hypokalemia Hypophosphatemia Hypomagnesemia Hypertension Hyponatremia and hypomagnesemia on admission were due to lab error Plan: Inflammatory markers improving. Patient is saturating on room air. Remains confused. Cardizem drip dose increased to 180 mg twice daily. Continue doxycycline with Decadron. Will discontinue potassium supplementation. A.m. labs. DC enteric precautions. 06/07 Continue supportive care. Will discontinue ceftriaxone after today's dose. Continue doxycycline. Continue Decadron. Wean O2 as tolerated. Heart rate controlled with Cardizem. Continue potassium replacement. Continue other medications as above. Recheck labs with inflammatory markers in a.m. 06/06 Continue ceftriaxone with doxycycline for pneumonia. Continue dexamethasone 6 mg daily with bronchodilators. Replace magnesium and phosphorus. C. difficile was negative. Inflammatory markers improving. Cardizem dose increased to 120 mg twice daily. Continue other medications as above. A.m. labs. DO NOT RESUSCITATE
[2020-06-08] MEDS: Melatonin 3 MG TAB PO PRN (19:52)
[2020-06-08] MEDS: Loperamide HCl 2 MG CAP PO PRN (19:52)
[2020-06-09 05:25] LABS: ALT (SGPT) 50 U/L (8-55); AST (SGOT) 18 U/L (5-34); Albumin 3.6 g/dL (3.4-4.8); Alkaline Phosphatase 80 U/L (40-110); Anion Gap 16 mmol/L (10-20); BUN (Urea Nitrogen) 25 mg/dL (9.8-20.1); Bilirubin, Total 0.3 mg/dL (0.2-1.2); Calc. Creatinine Clearance 48 mL/min (70-130); Calcium 9.6 mg/dL (7.8-10.44); Carbon Dioxide 28 mmol/L (23-31); Chloride 97 mmol/L (98-107); Globulin 3.2 g/dL (2.4-3.5); Glucose 221 mg/dL (83-110); Potassium 4.3 mmol/L (3.5-5.1); Protein, Total 6.8 g/dL (6.0-8.3); Sodium 137 mmol/L (136-145)
[2020-06-09 05:38] LABS: Hemoglobin 11.7 g/dL (12.0-16.0); Mean Corpuscular HGB CONC 31.4 g/dL (32.0-36.0); Mean Corpuscular Hemoglobin 29.5 pg (27.0-31.0); Mean Corpuscular Volume 93.8 fL (78.0-98.0); Mean Platelet Volume 9.4 fL (7.4-10.4); Platelet Count 391 thou/uL (130-400); RBC Distribution Width 11.7 % (11.5-14.5); Red Blood Cell (RBC) Count 3.98 mill/uL (4.20-5.40); White Blood Cell (WBC) Count 18.9 thou/uL (4.8-10.8)
[2020-06-09 05:39] LABS: Lymphocytes 11 % (21-51); MDiff Complete? YES; Metamyelocyte 5 % (0-0); Monocytes 3 % (0-10); Neutrophil 81 % (42-75); Platelet Morphology Comment Appears Adequate; RBC Morphology Normal
[2020-06-09] MEDS: Ascorbic Acid 500 mg Chewable Tablet PO SCH (08:30)
[2020-06-09] MEDS: Doxycycline 100 MG CAP PO SCH ×2 (08:30→20:26)
[2020-06-09] MEDS: Dexamethasone 4 mg/ml Vial SLOW IVP SCH (08:30)
[2020-06-09] MEDS: Saccharomyces boulardii 250 MG CAP PO SCH ×2 (08:31→20:26)
[2020-06-09] MEDS: Zinc Sulfate 220 MG CAP PO SCH (08:31)
[2020-06-09] MEDS: Enoxaparin Sodium 40 MG/0.4 ML SYRINGE SC SCH (08:33)
[2020-06-09] MEDS: Loperamide HCl 2 MG CAP PO PRN (20:26)
[2020-06-09] MEDS: Melatonin 3 MG TAB PO PRN (20:26)
--- NOTE | 2020-06-09 20:44 | PDOC.HOSPP ---
- Subjective Encounter Date: 06/09/20 Encounter Time: 12:00 Subjective: Patient seen and examined for respiratory failure due to COVID 19 pneumonia. Remains confused requiring restraint. No other overnight events. Appetite okay. No other overnight events. - Objective Vital Signs & Weight: Vital Signs (12 hours) Temp Pulse Resp BP Pulse Ox 06/09/20 16:00 98.8 F 73 20 153/75 H 95 06/09/20 12:30 98.0 F 85 20 147/75 H 97 06/09/20 08:45 98.0 F 77 20 157/70 H 97 Weight Weight 126 lb 15.78 oz I&O: 06/08/20 06/09/20 06/10/20 06:59 06:59 06:59 Intake Total 1260 720 800 Balance 1260 720 800 Result Diagrams: 06/09/20 04:34 06/09/20 04:34 Additional Labs: Abnormal Lab Results - Last 48 hrs 06/08/20 04:42: Sodium 134 L, Chloride 96 L, ALT 65 H, C-Reactive Protein 3.38 H, Albumin/Globulin Ratio 1.1 L 06/08/20 04:42: Ferritin 612.27 H 06/08/20 04:42: D-Dimer 1.61 H 06/08/20 04:42: WBC 14.2 H, RBC 3.94 L, Lymphocytes % (Manual) 16 L, Myelocytes % 2 H 06/09/20 04:34: Chloride 97 L, BUN 25 H, Albumin/Globulin Ratio 1.1 L 06/09/20 04:34: WBC 18.9 H, RBC 3.98 L, Hgb 11.7 L, MCHC 31.4 L, Neutrophils % (Manual) 81 H, Lymphocytes % (Manual) 11 L Microbiology - Entire Visit 06/03/20 12:39 Venous blood - Right Arm Blood Culture - Final NO GROWTH IN 5 DAYS 06/03/20 12:37 Venous blood - Left Arm Blood Culture - Final NO GROWTH IN 5 DAYS 06/06/20 06:50 Stool C. difficile GDH Antigen & Toxins - Final 06/03/20 13:18 Urine voided Urine Culture - Final EKG Reviewed by me: Yes (Sinus rhythm on telemetry) Hospitalist ROS - Review of Systems ROS unobtainable: due to mental status - Medication Medications: Active Medications Generic Name Dose Route Start Last Admin Trade Name Freq PRN Reason Stop Dose Admin Acetaminophen 650 mg 06/04/20 21:23 06/06/20 22:31 Acetaminophen 325 Mg Tab PO 650 mg Q4H PRN Administration Headache/Fever or Mild Pain Ascorbic Acid 1,000 mg 06/05/20 09:00 06/09/20 08:30 Ascorbic Acid 500 Mg Chewable Tablet PO 1,000 mg DAILY JIMBO Administration Dexamethasone 6 mg 06/05/20 09:00 06/09/20 08:30 Dexamethasone 4 Mg/Ml Vial SLOW IVP 6 mg DAILY JIMBO Administration Diltiazem HCl 180 mg 06/08/20 21:00 06/09/20 20:26 Diltiazem Hcl Cd 180 Mg Capsule PO 180 mg BID JIMBO Administration Doxycycline Hyclate 100 mg 06/04/20 21:00 06/09/20 20:26 Doxycycline 100 Mg Cap PO 100 mg BID JIMBO Administration Enoxaparin Sodium 40 mg 06/05/20 09:00 06/09/20 08:33 Enoxaparin Sodium 40 Mg/0.4 Ml Syringe SC 40 mg 0900 JIMBO Administration Loperamide HCl 2 mg 06/06/20 14:25 06/09/20 20:26 Loperamide Hcl 2 Mg Cap PO 2 mg PRN PRN Administration Diarrhea/Loose Stools Lorazepam 0.25 mg 06/07/20 16:35 06/07/20 17:19 Lorazepam 2 Mg/Ml Vial SLOW IVP 0.25 mg Q6H PRN Administration Anxiety/Agitation Melatonin 3 mg 06/05/20 18:32 06/09/20 20:26 Melatonin 3 Mg Tab PO 3 mg HS PRN Administration Insomnia Oxybutynin Chloride 5 mg 06/05/20 21:00 06/07/20 07:58 Oxybutynin 5 Mg Tab PO 5 mg BID JIMBO Administration Pantoprazole Sodium 40 mg 06/07/20 09:00 06/09/20 08:31 Pantoprazole 40 Mg Tab PO 40 mg DAILY JIMBO Administration Saccharomyces Boulardii 250 mg 06/06/20 21:00 06/09/20 20:26 Saccharomyces Boulardii 250 Mg Cap PO 250 mg BID JIMBO Administration Sodium Chloride 10 ml 06/04/20 09:00 06/09/20 20:26 Flush - Normal Saline 10 Ml Syringe IVF 10 ml Q12HR JIMBO Administration Zinc Sulfate 220 mg 06/05/20 09:00 06/09/20 08:31 Zinc Sulfate 220 Mg Cap PO 220 mg DAILY JIMBO Administration - Exam General Appearance: ill appearing Neck: supple, no JVD Heart: no gallops, no rubs Respiratory: no wheezes, rales, rhonchi Gastrointestinal: soft, non-tender, normal bowel sounds, no guarding, no rigid ity Extremities: no cyanosis Neurological - other findings: Neuro/psychunable to assess due to confusion Musculoskeletal: generalized weakness Hosp A/P - Plan DVT proph w/SCDs Acute hypoxic respiratory failure/sepsis with acute organ dysfunction due to COVID 19 pneumonia Tachyarrhythmia probably due to multifocal atrial tachycardia S/p Cardizem drip Generalized weakness Hypokalemia Hypophosphatemia Hypomagnesemia Hypertension Hyponatremia and hypomagnesemia on admission were due to lab error Plan: Patient remains on room air. Appetite is okay. Remains pleasantly confused. Will check inflammatory markers in a.m. Continue IV Decadron. Continue current dose of Cardizem, doxycycline with Protonix. Continue other medications as above. DC planning. Will consult case folder for home health care set up. DC in a.m. if okay with cardiology 06/08 Inflammatory markers improving. Patient is saturating on room air. Remains confused. Cardizem drip dose increased to 180 mg twice daily. Continue doxycycline with Decadron. Will discontinue potassium supplementation. A.m. labs. DC enteric precautions. 06/07 Continue supportive care. Will discontinue ceftriaxone after today's dose. Continue doxycycline. Continue Decadron. Wean O2 as tolerated. Heart rate controlled with Cardizem. Continue potassium replacement. Continue other medications as above. Recheck labs with inflammatory markers in a.m. 06/06 Continue ceftriaxone with doxycycline for pneumonia. Continue dexamethasone 6 mg daily with bronchodilators. Replace magnesium and phosphorus. C. difficile was negative. Inflammatory markers improving. Cardizem dose increased to 120 mg twice daily. Continue other medications as above. A.m. labs. DO NOT RESUSCITATE
[2020-06-10 05:43] LABS: ALT (SGPT) 39 U/L (8-55); AST (SGOT) 12 U/L (5-34); Albumin 3.4 g/dL (3.4-4.8); Alkaline Phosphatase 71 U/L (40-110); Anion Gap 17 mmol/L (10-20); BUN (Urea Nitrogen) 27 mg/dL (9.8-20.1); Bilirubin, Total 0.3 mg/dL (0.2-1.2); CRP (Inflammatory) 0.92 mg/dL (= or < 0.5); Calc. Creatinine Clearance 47 mL/min (70-130); Calcium 9.6 mg/dL (7.8-10.44); Carbon Dioxide 22 mmol/L (23-31); Chloride 100 mmol/L (98-107); Globulin 2.8 g/dL (2.4-3.5); Glucose 249 mg/dL (83-110); Potassium 4.8 mmol/L (3.5-5.1); Protein, Total 6.2 g/dL (6.0-8.3); Sodium 134 mmol/L (136-145)
[2020-06-10 05:51] LABS: Band 6 % (5-11); Hemoglobin 11.6 g/dL (12.0-16.0); Lymphocytes 14 % (21-51); MDiff Complete? YES; Mean Corpuscular HGB CONC 33.3 g/dL (32.0-36.0); Mean Corpuscular Hemoglobin 31.2 pg (27.0-31.0); Mean Corpuscular Volume 93.8 fL (78.0-98.0); Mean Platelet Volume 9.5 fL (7.4-10.4); Monocytes 3 % (0-10); Neutrophil 74 % (42-75); Platelet Count 399 thou/uL (130-400); Platelet Morphology Comment Appears Adequate; RBC Distribution Width 11.8 % (11.5-14.5); RBC Morphology Normal; Reactive Lymphocytes 3 % (0-10); White Blood Cell (WBC) Count 24.4 thou/uL (4.8-10.8)
--- NOTE | 2020-06-10 07:39 | PDOC.HOSPP ---
- Subjective Encounter Date: 06/10/20 Encounter Time: 10:50 Subjective: Patient without complaints. Alert and oriented to person, place, and situation, but didn't know the year. Spoke with granddaughter and she stated that patient does have confusion on and off at baseline. - Objective Vital Signs & Weight: Vital Signs (12 hours) Temp Pulse Resp BP Pulse Ox 06/10/20 04:30 97.6 F 63 19 150/70 H 96 06/10/20 04:26 96 06/10/20 00:20 98 F 76 22 H 166/76 H 96 06/09/20 20:26 98.6 F 86 18 175/79 H 92 L Weight Weight 126 lb 15.78 oz I&O: 06/09/20 06/10/20 06/11/20 06:59 06:59 06:59 Intake Total 720 1100 Balance 720 1100 Result Diagrams: 06/10/20 04:31 06/10/20 04:31 Hospitalist ROS - Review of Systems Constitutional: denies: fever, chills Respiratory: denies: cough, shortness of breath Cardiovascular: denies: chest pain, palpitations Gastrointestinal: denies: nausea, vomiting, abdominal pain - Medication Medications: Active Medications Generic Name Dose Route Start Last Admin Trade Name Freq PRN Reason Stop Dose Admin Acetaminophen 650 mg 06/04/20 21:23 06/06/20 22:31 Acetaminophen 325 Mg Tab PO 650 mg Q4H PRN Administration Headache/Fever or Mild Pain Ascorbic Acid 1,000 mg 06/05/20 09:00 06/09/20 08:30 Ascorbic Acid 500 Mg Chewable Tablet PO 1,000 mg DAILY JIMBO Administration Dexamethasone 6 mg 06/05/20 09:00 06/09/20 08:30 Dexamethasone 4 Mg/Ml Vial SLOW IVP 6 mg DAILY JIMBO Administration Diltiazem HCl 180 mg 06/08/20 21:00 06/09/20 20:26 Diltiazem Hcl Cd 180 Mg Capsule PO 180 mg BID JIMBO Administration Doxycycline Hyclate 100 mg 06/04/20 21:00 06/09/20 20:26 Doxycycline 100 Mg Cap PO 100 mg BID JIMBO Administration Enoxaparin Sodium 40 mg 06/05/20 09:00 06/09/20 08:33 Enoxaparin Sodium 40 Mg/0.4 Ml Syringe SC 40 mg 0900 JIMBO Administration Loperamide HCl 2 mg 06/06/20 14:25 06/09/20 20:26 Loperamide Hcl 2 Mg Cap PO 2 mg PRN PRN Administration Diarrhea/Loose Stools Lorazepam 0.25 mg 06/07/20 16:35 06/07/20 17:19 Lorazepam 2 Mg/Ml Vial SLOW IVP 0.25 mg Q6H PRN Administration Anxiety/Agitation Melatonin 3 mg 06/05/20 18:32 06/09/20 20:26 Melatonin 3 Mg Tab PO 3 mg HS PRN Administration Insomnia Oxybutynin Chloride 5 mg 06/05/20 21:00 06/07/20 07:58 Oxybutynin 5 Mg Tab PO 5 mg BID JIMBO Administration Pantoprazole Sodium 40 mg 06/07/20 09:00 06/09/20 08:31 Pantoprazole 40 Mg Tab PO 40 mg DAILY JIMBO Administration Saccharomyces Boulardii 250 mg 06/06/20 21:00 06/09/20 20:26 Saccharomyces Boulardii 250 Mg Cap PO 250 mg BID JIMBO Administration Sodium Chloride 10 ml 06/04/20 09:00 06/09/20 20:26 Flush - Normal Saline 10 Ml Syringe IVF 10 ml Q12HR JIMBO Administration Zinc Sulfate 220 mg 06/05/20 09:00 06/09/20 08:31 Zinc Sulfate 220 Mg Cap PO 220 mg DAILY JIMBO Administration - Exam General Appearance: NAD, awake alert ENT: moist mucosa Heart: RRR, no murmur, no gallops, no rubs Respiratory: CTAB, no wheezes, no rales, no ronchi, no tachypnea Gastrointestinal: soft, non-tender, non-distended, normal bowel sounds Extremities: no edema Psychiatric: normal affect, normal behavior, oriented to person, oriented to place Hosp A/P - Plan DVT proph w/SCDs Acute hypoxic respiratory failure/sepsis with acute organ dysfunction due to COVID 19 pneumonia Tachyarrhythmia probably due to multifocal atrial tachycardia S/p Cardizem drip Generalized weakness Hypokalemia Hypophosphatemia Hypomagnesemia Hypertension Hyponatremia and hypomagnesemia on admission were due to lab error Plan: Patient remains on room air. Appetite is okay. Remains pleasantly confused. Did require restraints and Ativan for agitation last night. Inflammatory markers all improving. Significant leukocytosis likely due to Decadron. Continue current dose of Cardizem, doxycycline.. Continue other medications as above. DC planning. Will consult [facility] for home health care set up. Spoke with Dr. Boston and he is ok to d/c from his standpoint. Will d/c home with home health. I did contact the granddaughter and she will be staying with patient and he for the next few days to make sure she is doing well. 06/08 Inflammatory markers improving. Patient is saturating on room air. Remains confused. Cardizem drip dose increased to 180 mg twice daily. Continue doxycycline with Decadron. Will discontinue potassium supplementation. A.m. labs. DC enteric precautions. 06/07 Continue supportive care. Will discontinue ceftriaxone after today's dose. Continue doxycycline. Continue Decadron. Wean O2 as tolerated. Heart rate controlled with Cardizem. Continue potassium replacement. Continue other medications as above. Recheck labs with inflammatory markers in a.m. 06/06 Continue ceftriaxone with doxycycline for pneumonia. Continue dexamethasone 6 mg daily with bronchodilators. Replace magnesium and phosphorus. C. difficile was negative. Inflammatory markers improving. Cardizem dose increased to 120 mg twice daily. Continue other medications as above. A.m. labs. DO NOT RESUSCITATE
[2020-06-10] MEDS: Dexamethasone 4 mg/ml Vial SLOW IVP SCH (08:49)
[2020-06-10] MEDS: Ascorbic Acid 500 mg Chewable Tablet PO SCH (08:49)
[2020-06-10] MEDS: Enoxaparin Sodium 40 MG/0.4 ML SYRINGE SC SCH (08:51)
[2020-06-10] MEDS: Saccharomyces boulardii 250 MG CAP PO SCH (08:51)
[2020-06-10] MEDS: Doxycycline 100 MG CAP PO SCH (08:51)
[2020-06-10] MEDS: Zinc Sulfate 220 MG CAP PO SCH (08:52)
[2020-06-10 15:14] VITALS: BP 141/68
[2020-06-10] MEDS: Acetaminophen 325 MG TAB PO PRN (15:17)
[2020-06-10 17:43] VITALS: TEMP 98.6
--- NOTE | 2020-06-11 06:22 | DIS ---
DATE OF ADMISSION: 06/03/2020 DATE OF DISCHARGE: 06/10/2020 PRIMARY CARE PHYSICIAN: Dr. Dominguez Daniel. REASON FOR ADMISSION: Left lower lobe pneumonia with hyponatremia, hypokalemia, and hypomagnesemia. DIAGNOSES AT DISCHARGE: 1. COVID-19 pneumonia. 2. Acute hypoxic respiratory failure, resolved. 3. Sepsis, resolved. 4. Multifocal atrial tachycardia, resolved. 5. Hypokalemia, resolved. 6. Hypophosphatemia, resolved. 7. Hypomagnesemia, resolved. 8. Hypertension. 9. Hyponatremia was a lab error. 10. 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 PROCEDURE: CT of the brain without contrast, showing no acute intracranial process, but mucosal opacification of the left sphenoid sinus. CONSULTATION: Cardiology, Dr. Boston. SUMMARY OF HOSPITAL COURSE: This is an 85-year-old white female, who was brought into the emergency room with cough and congestion. She also had some confusion. The patient initially was found to have a sodium of 101 and hypokalemia. She was admitted to the ICU. On recheck, sodium, however, was much improved and it was thought this was likely a lab error. She was noted to have a pneumonia on her chest x-ray and was found to be in multifocal atrial tachycardia. The patient was started on Cardizem drip and converted to normal sinus rhythm. She was eventually switched over to oral Cardizem by Dr. Boston and had control of her heart rate. She did have some confusion on and off throughout the hospitalization. Her family, her she lives with, and her granddaughter decided to make her do not attempt resuscitation. She did well during the hospitalization, was off all oxygen, was eating well and speaking well by the time of discharge. She did have some sundowning at nights and did need intermittent restraints and Ativan for agitation. However, on the day of discharge, she was pleasant and oriented to everything, except for the year. DISCHARGE MANAGEMENT: Discharged home with Home Health. ACTIVITY: As tolerated. DIET: Regular diet with Ensure three times a day. THERAPY: Physical therapy and intermediate through home health. FOLLOWUP: Follow up with Dr. Daniel in 2 to 3 weeks. DISCHARGE MEDICATIONS: 1. Diltiazem CD 180 mg twice a day, 60 capsules dispensed. 2. Doxycycline 100 mg twice a day, 6 capsules dispensed. 3. Ditropan 5 mg twice a day. 4. Estradiol 0.5 mg daily. 5. Irbesartan 300 mg daily. 6. Metformin 500 mg extended release two tablets daily. 7. Simvastatin 40 mg at night. 8. The patient is to stop her diuretic and her amlodipine. Arranging the details of this discharge took 32 minutes. Job ID: [id number]
== END 2020-06-10 17:34 | disposition home health service (06) | DRG 871 ==
LOC: ERS 12:05 → ERHOLD 14:29 → 2SW 06-04 20:59
PROVIDERS: ADMIT Internal Medicine; ATTEND Emergency Medicine
PROC: 8E0ZXY6 Isolation (ICD-10-PCS; principal; 2020-06-03)
DX: A41.89 Other specified sepsis (principal); U07.1 COVID-19; J12.82 Pneumonia due to coronavirus disease 2019; J96.01 Acute respiratory failure with hypoxia; J18.9 Pneumonia, unspecified organism; I47.1 Supraventricular tachycardia; Z66 Do not resuscitate; Z51.5 Encounter for palliative care; I48.91 Unspecified atrial fibrillation; I10 Essential (primary) hypertension; E87.6 Hypokalemia; E78.00 Pure hypercholesterolemia, unspecified; E83.39 Other disorders of phosphorus metabolism; G89.29 Other chronic pain; M54.9 Dorsalgia, unspecified; Z90.49 Acquired absence of other specified parts of digestive tract; Z90.710 Acquired absence of both cervix and uterus; Z90.89 Acquired absence of other organs; Z79.899 Other long term (current) drug therapy; Z79.84 Long term (current) use of oral hypoglycemic drugs; Z98.890 Other specified postprocedural states; E83.42 Hypomagnesemia; F03.90 Unspecified dementia, unspecified severity, without behavioral disturbance, psychotic disturbance, mood disturbance, and anxiety
CPT/HCPCS: 0240U; 36415; 70450; 71045; 80048; 80053; 81003; 81015; 82550; 82728; 83605; 83735; 83880; 83930; 84100; 84443; 84484; 84550; 85025; 85060; 85379; 85610; 85730; 86140; 87040; 87086; 87324; 87449; 93005; 96365; 96366; 96367; 96368; 96375; J0696; J1100; J1650; J2060; J2543; J3370; J3475; J3480; J3490; J7030; J7050

== ENCOUNTER 2022-02-07 10:16 | Inpatient (IN) | payer OTHER ==
[2022-02-07 11:17] LABS: #Eosinphils 0.3 thou/uL (0.0-0.7); #Monocytes 0.3 thou/uL (0.11-0.59); #Neutrophils 8.9 thou/uL (1.40-6.50); %Basophils 0.2 % (0.0-1.0); %Lymphocytes 9.3 % (21.0-51.0); %Monocytes 2.6 % (0.0-10.0); Hemoglobin 9.8 g/dL (12.0-16.0); Mean Corpuscular Hemoglobin 27.5 pg (27.0-31.0); Mean Corpuscular Volume 88.6 fL (78.0-98.0); Mean Platelet Volume 9.7 fL (7.4-10.4); Platelet Count 154 thou/uL (130-400); RBC Distribution Width 17.7 % (11.5-14.5); Red Blood Cell (RBC) Count 3.56 mill/uL (4.20-5.40); White Blood Cell (WBC) Count 10.5 thou/uL (4.8-10.8)
[2022-02-07 11:35] LABS: ALT (SGPT) 10 U/L (8-55); AST (SGOT) 7 U/L (5-34); Albumin 3.7 g/dL (3.4-4.8); Alkaline Phosphatase 88 U/L (40-110); Anion Gap 13 mmol/L (10-20); BUN (Urea Nitrogen) 40 mg/dL (9.8-20.1); Bilirubin, Total 0.2 mg/dL (0.2-1.2); Calc. Creatinine Clearance 0 mL/min (70-130); Calcium 9.3 mg/dL (7.8-10.44); Carbon Dioxide 16 mmol/L (23-31); Chloride 116 mmol/L (98-107); Estimated GFR 39; Globulin 3.1 g/dL (2.4-3.5); Glucose 171 mg/dL (83-110); Potassium 4.1 mmol/L (3.5-5.1); Protein, Total 6.8 g/dL (5.8-8.1); Sodium 141 mmol/L (136-145)
[2022-02-07 12:18] LABS: Bacteria/HPF 2+ HPF (None Seen); Bilirubin Negative (Negative); Blood, Urine 1+ (Negative); Clarity Turbid (Clear); Glucose, Urine (Dipstick) 100 mg/dL (Negative); Ketone, Urine Negative (Negative); Leukocyte 500 Leu/uL (Negative); Nitrite Negative (Negative); Protein, Urine (Dipstick) 70 mg/dL (Neg-Trace); Specific Gravity, Urine 1.014 (1.002-1.036); Squamous Epithelial 0-3 HPF (0-3); Urobilinogen Normal mg/dL (Less than 2); WBC/HPF Greater than 50 HPF (0-3); pH, Urine 6.5 (5.0-9.0)
[2022-02-07] MEDS ORDERED: Piperacillin/Tazobactam 4.5 GM VIAL ONE ×2 (12:57→13:13)
[2022-02-07 13:08] LABS: SARS-CoV-2 NAA Rapid Test DETECTED (NotDetected)
[2022-02-07] MEDS ORDERED: Ondansetron PF 4 MG/2 ML Vial IVP PRN (13:44)
[2022-02-07] MEDS ORDERED: Insulin Regular 300 UNITS/3 ML VIAL SC PRN ×2 (13:44)
[2022-02-07] MEDS ORDERED: Ondansetron ODT 4 MG TAB PO PRN (13:44)
[2022-02-07] MEDS ORDERED: Dextrose 50% Abboject 50 ML SYRINGE SLOW IVP PRN (13:44)
[2022-02-07] MEDS ORDERED: Dextrose 5% in Water 1,000 ML IV PRN (13:44)
[2022-02-07] MEDS: Sodium Chloride 0.9% 1,000 ML IV SCH (15:08)
[2022-02-07 15:42] VITALS: BMI 24.3
[2022-02-07 16:19] LABS: Amphetamine Not Detected (NotDetected); Barbiturates Screen Not Detected (NotDetected); Benzodiazepine Screen Not Detected (NotDetected); Cocaine Metabolite Screen Not Detected (NotDetected); Methadone Not Detected (NotDetected); Methamphetamine Not Detected (NotDetected); Opiate Screen Not Detected (NotDetected); Oxycodone Screen Not Detected (NotDetected); Phencyclidine (PCP) Not Detected (NotDetected); THC/Cannabinoid Screen Not Detected (NotDetected); Tricyclic Screen Not Detected (NotDetected)
[2022-02-07] MEDS: Donepezil HCl 5 MG TAB PO SCH (21:16)
[2022-02-07] MEDS: Atorvastatin Calcium 20 MG TAB PO SCH (21:16)
[2022-02-07] MEDS: Oxybutynin 5 MG TAB PO SCH (21:16)
[2022-02-07] MEDS: Piperacillin/Tazobactam 3.375 GM in Sodium Chloride 0.9% 100 ML IVPB SCH (21:21)
[2022-02-08] MEDS: Sodium Chloride 0.9% 1,000 ML IV SCH ×2 (04:59→16:37)
[2022-02-08] MEDS: Piperacillin/Tazobactam 3.375 GM in Sodium Chloride 0.9% 100 ML IVPB SCH ×3 (05:36→20:52)
[2022-02-08 06:44] LABS: #Eosinphils 0.4 thou/uL (0.0-0.7); #Monocytes 0.4 thou/uL (0.11-0.59); #Neutrophils 5.9 thou/uL (1.40-6.50); %Basophils 0.5 % (0.0-1.0); %Eosinophils 4.9 % (0.0-10.0); %Lymphocytes 13.1 % (21.0-51.0); %Monocytes 5.2 % (0.0-10.0); %Neutrophils 76.4 % (42.0-75.0); Hemoglobin 9.3 g/dL (12.0-16.0); Mean Corpuscular HGB CONC 31.5 g/dL (32.0-36.0); Mean Corpuscular Volume 88.9 fL (78.0-98.0); Mean Platelet Volume 8.8 fL (7.4-10.4); Platelet Count 308 thou/uL (130-400); RBC Distribution Width 17.5 % (11.5-14.5); Red Blood Cell (RBC) Count 3.33 mill/uL (4.20-5.40); White Blood Cell (WBC) Count 7.7 thou/uL (4.8-10.8)
[2022-02-08 07:02] LABS: Anion Gap 10 mmol/L (10-20); BUN (Urea Nitrogen) 28 mg/dL (9.8-20.1); Calc. Creatinine Clearance 38 mL/min (70-130); Calcium 9.2 mg/dL (7.8-10.44); Carbon Dioxide 18 mmol/L (23-31); Chloride 120 mmol/L (98-107); Estimated GFR 55; Glucose 149 mg/dL (83-110); Potassium 4.1 mmol/L (3.5-5.1); Sodium 144 mmol/L (136-145)
[2022-02-08] MEDS ORDERED: Non-Formulary Item 1 EACH (Estradiol [Estradiol] 0.5 MG Tablet) PO SCH (09:00)
[2022-02-08] MEDS: Estradiol 1 MG TAB PO SCH (09:56)
[2022-02-08] MEDS: Empagliflozin 25 MG TAB PO SCH (09:56)
[2022-02-08] MEDS: Folic Acid 1 MG TAB PO SCH (09:57)
[2022-02-08] MEDS: Oxybutynin 5 MG TAB PO SCH ×2 (09:57→20:49)
[2022-02-08] MEDS: Docusate 100 MG CAP PO SCH (09:57)
[2022-02-08] MEDS: Acetaminophen 325 MG TAB PO PRN ×2 (11:50→20:48)
[2022-02-08] MEDS: Donepezil HCl 5 MG TAB PO SCH (20:49)
[2022-02-08] MEDS: Atorvastatin Calcium 20 MG TAB PO SCH (20:49)
[2022-02-08] MEDS ORDERED: Baclofen 10 MG TAB PO SCH (23:00)
[2022-02-09] MEDS ORDERED: hydrALAZINE 20 MG/ML VIAL SLOW IVP SCH (04:00)
[2022-02-09] MEDS: Piperacillin/Tazobactam 3.375 GM in Sodium Chloride 0.9% 100 ML IVPB SCH ×3 (05:32→20:34)
[2022-02-09] MEDS: Sodium Chloride 0.9% 1,000 ML IV SCH ×2 (05:34→22:24)
[2022-02-09 06:07] LABS: #Eosinphils 0.4 thou/uL (0.0-0.7); #Lymphocytes 1.3 thou/uL (1.20-3.40); #Monocytes 0.4 thou/uL (0.11-0.59); #Neutrophils 8.9 thou/uL (1.40-6.50); %Basophils 0.4 % (0.0-1.0); %Eosinophils 3.7 % (0.0-10.0); %Lymphocytes 11.9 % (21.0-51.0); %Monocytes 3.8 % (0.0-10.0); %Neutrophils 80.2 % (42.0-75.0); Mean Corpuscular HGB CONC 31.3 g/dL (32.0-36.0); Mean Corpuscular Hemoglobin 27.4 pg (27.0-31.0); Mean Corpuscular Volume 87.5 fL (78.0-98.0); Mean Platelet Volume 8.9 fL (7.4-10.4); Platelet Count 323 thou/uL (130-400); RBC Distribution Width 17.4 % (11.5-14.5); Red Blood Cell (RBC) Count 3.64 mill/uL (4.20-5.40); White Blood Cell (WBC) Count 11.1 thou/uL (4.8-10.8)
[2022-02-09 06:35] LABS: Anion Gap 13 mmol/L (10-20); BUN (Urea Nitrogen) 19 mg/dL (9.8-20.1); Calc. Creatinine Clearance 50 mL/min (70-130); Calcium 9.3 mg/dL (7.8-10.44); Carbon Dioxide 15 mmol/L (23-31); Chloride 114 mmol/L (98-107); Estimated GFR 77; Glucose 129 mg/dL (83-110); Potassium 3.5 mmol/L (3.5-5.1); Sodium 138 mmol/L (136-145)
[2022-02-09] MEDS: Docusate 100 MG CAP PO SCH (09:16)
[2022-02-09] MEDS: Oxybutynin 5 MG TAB PO SCH ×2 (09:16→20:33)
[2022-02-09] MEDS: Folic Acid 1 MG TAB PO SCH (09:16)
[2022-02-09] MEDS: Estradiol 1 MG TAB PO SCH (09:17)
[2022-02-09] MEDS: Empagliflozin 25 MG TAB PO SCH (09:17)
[2022-02-09 19:18] VITALS: TEMP 98
[2022-02-09] MEDS: Atorvastatin Calcium 20 MG TAB PO SCH (20:33)
[2022-02-09] MEDS: Donepezil HCl 5 MG TAB PO SCH (20:33)
[2022-02-09] MEDS: Acetaminophen 325 MG TAB PO PRN (20:33)
[2022-02-10] MEDS: Acetaminophen 325 MG TAB PO PRN (02:30)
[2022-02-10] MEDS: Piperacillin/Tazobactam 3.375 GM in Sodium Chloride 0.9% 100 ML IVPB SCH ×2 (05:19→13:11)
[2022-02-10 07:31] LABS: #Eosinphils 0.1 thou/uL (0.0-0.7); #Lymphocytes 0.8 thou/uL (1.20-3.40); #Monocytes 0.4 thou/uL (0.11-0.59); #Neutrophils 8.8 thou/uL (1.40-6.50); %Basophils 0.1 % (0.0-1.0); %Eosinophils 1.3 % (0.0-10.0); %Monocytes 3.6 % (0.0-10.0); %Neutrophils 87.1 % (42.0-75.0); Hemoglobin 10.8 g/dL (12.0-16.0); Mean Corpuscular HGB CONC 31.5 g/dL (32.0-36.0); Mean Corpuscular Hemoglobin 27.5 pg (27.0-31.0); Mean Corpuscular Volume 87.3 fL (78.0-98.0); Mean Platelet Volume 8.8 fL (7.4-10.4); Platelet Count 343 thou/uL (130-400); RBC Distribution Width 17.7 % (11.5-14.5); Red Blood Cell (RBC) Count 3.94 mill/uL (4.20-5.40); White Blood Cell (WBC) Count 10.1 thou/uL (4.8-10.8)
[2022-02-10 07:39] LABS: Anion Gap 14 mmol/L (10-20); BUN (Urea Nitrogen) 13 mg/dL (9.8-20.1); Calc. Creatinine Clearance 52 mL/min (70-130); Calcium 9.4 mg/dL (7.8-10.44); Carbon Dioxide 17 mmol/L (23-31); Chloride 110 mmol/L (98-107); Estimated GFR 81; Glucose 136 mg/dL (83-110); Magnesium 1.9 mg/dL (1.6-2.6); Potassium 3.4 mmol/L (3.5-5.1); Sodium 138 mmol/L (136-145)
[2022-02-10] MEDS ORDERED: Potassium Bicarbonate/Cit Ac 20 MEQ TAB PO SCH (08:30)
[2022-02-10] MEDS ORDERED: Losartan 25 MG TAB PO SCH (09:00)
[2022-02-10] MEDS: Estradiol 1 MG TAB PO SCH (09:22)
[2022-02-10] MEDS: Empagliflozin 25 MG TAB PO SCH (09:22)
[2022-02-10] MEDS: Oxybutynin 5 MG TAB PO SCH (09:23)
[2022-02-10] MEDS: Folic Acid 1 MG TAB PO SCH (09:23)
[2022-02-10] MEDS: Sodium Chloride 0.9% 1,000 ML IV SCH (09:24)
[2022-02-10 09:27] VITALS: BP 156/78
[2022-02-10 14:05] LABS: Campy jejuni + coli by PCR Negative (Negative); STEC Shiga Toxin 1+2 Negative (Negative); Salmonella spp. by PCR Negative (Negative); Shigella spp + EIEC by PCR Negative (Negative)
== END 2022-02-10 13:55 | disposition home or self-care (01) | DRG 689 ==
LOC: SUATTDRO 10:16 → ERS 10:16 → T4-B 13:18
PROVIDERS: ADMIT Family Medicine; ATTEND Hospitalist
DX: N39.0 Urinary tract infection, site not specified (principal); U07.1 COVID-19; I47.1 Supraventricular tachycardia; N17.9 Acute kidney failure, unspecified; G93.40 Encephalopathy, unspecified; Z66 Do not resuscitate; M54.9 Dorsalgia, unspecified; G89.29 Other chronic pain; E11.9 Type 2 diabetes mellitus without complications; I10 Essential (primary) hypertension; E78.5 Hyperlipidemia, unspecified; F03.90 Unspecified dementia, unspecified severity, without behavioral disturbance, psychotic disturbance, mood disturbance, and anxiety; R19.7 Diarrhea, unspecified; E78.00 Pure hypercholesterolemia, unspecified; R53.1 Weakness; B96.20 Unspecified Escherichia coli [E. coli] as the cause of diseases classified elsewhere; Z88.8 Allergy status to other drugs, medicaments and biological substances; Z79.899 Other long term (current) drug therapy; Z98.890 Other specified postprocedural states; Z90.49 Acquired absence of other specified parts of digestive tract; Z87.440 Personal history of urinary (tract) infections; Z90.710 Acquired absence of both cervix and uterus; Z90.89 Acquired absence of other organs
CPT/HCPCS: 36415; 36416; 71045; 80048; 80053; 80306; 81003; 81015; 83735; 84484; 85025; 86140; 87040; 87086; 87324; 87449; 87505; 93005; J0360; J1815; J2543; J3490; J7050; U0002

== ENCOUNTER 2022-09-22 10:55 | Day surgery (SDC) | payer OTHER ==
[2022-09-21 11:58] VITALS: BMI 24.4
[~2022-09-22 10:55] MED LIST: EPINEPHrine 0.3 MG in Ophthalmic Irrigation Solution 500 ML IRR SCH; Famotidine/PF 20 mg/2ml Vial ONE; GANCICLOVIR SODIUM FS SCH; GANCICLOVIR SODIUM I-VITREAL SCH; Midazolam HCl 2 mg/2 ml Vial ONE; SODIUM CHLORIDE 0.9% FS SCH; SODIUM CHLORIDE 0.9% I-VITREAL SCH; fentaNYL 50 mcg/mL 1 mL Vial ONE
[2022-09-22] MEDS ORDERED: Phenylephrine 2.5% Ophth Soln 5 ML BOT ONE (11:28)
[2022-09-22] MEDS ORDERED: Cyclopentolate 1% Opth Drop 2 ML BOT ONE (11:28)
[2022-09-22] MEDS ORDERED: Ondansetron PF 4 MG/2 ML Vial ONE ×2 (13:01→13:14)
[2022-09-22] MEDS ORDERED: Bupivacaine 0.75% 10 ML VIAL ONE (13:14)
[2022-09-22] MEDS ORDERED: Lidocaine 1% PF 5 ML VIAL ONE (13:14)
[2022-09-22] MEDS ORDERED: Maxitrol 0.1% Opth Oint 3.5 GM TUBE ONE (13:14)
[2022-09-22] MEDS ORDERED: Lidocaine 4% PF 5 ML AMP ONE (13:14)
[2022-09-22] MEDS ORDERED: PROPOFOL 200 MG/20 ML VIAL ONE (13:14)
[2022-09-22] MEDS ORDERED: PHENYLEPHRINE-NS 100 MCG/ML 10 ML SYRINGE ONE (13:14)
[2022-09-22 15:17] LABS: Reference Lab Name LABCORP
[2022-09-22 15:37] LABS: Ref Lab Test Ordered CMV qPCR VIT'FLD
[2022-09-23 10:15] LABS: Varicella Zoster IgG ABS 429 index (Immune >165)
[2022-09-24 07:20] LABS: HSV-2 IgG Type Specific Less than 0.91 index (0.00-0.90)
[2022-09-24 14:38] LABS: Varicella Zoster IgM ABS Less than 0.91 index (0.00-0.90)
== END 2022-09-22 15:49 | disposition home or self-care (01) ==
LOC: SDC 10:55
PROVIDERS: ATTEND Ophthalmology Retina Specialist
PROC: 08T43ZZ Resection of Right Vitreous, Percutaneous Approach (ICD-10-PCS; principal; 2022-09-22)
PROC: 08NE3ZZ Release Right Retina, Percutaneous Approach (ICD-10-PCS; 2022-09-22)
DX: H30.91 Unspecified chorioretinal inflammation, right eye (principal); Q13.89 Other congenital malformations of anterior segment of eye; Z79.2 Long term (current) use of antibiotics; Z79.84 Long term (current) use of oral hypoglycemic drugs; Z79.899 Other long term (current) drug therapy; Z88.8 Allergy status to other drugs, medicaments and biological substances; Z98.41 Cataract extraction status, right eye; Z98.42 Cataract extraction status, left eye; Z96.1 Presence of intraocular lens
CPT/HCPCS: 67041; 86644; 86645; 86695; 86696; 86787 ×2; 87529 ×2; 87798; J3010; J0171; J1570; J2250; J2405; J2704; J3490; S0028

== ENCOUNTER 2022-11-08 21:16 | Inpatient (IN) | payer MEDICARE, OTHER ==
[~2022-11-08 21:16] MED LIST changes: -EPINEPHrine 0.3 MG in Ophthalmic Irrigation Solution 500 ML IRR SCH; -Famotidine/PF 20 mg/2ml Vial ONE; -GANCICLOVIR SODIUM FS SCH; -GANCICLOVIR SODIUM I-VITREAL SCH; +Iopamidol-370 76% 500 ML MDV (1 ML CHARGE) ONE; -Midazolam HCl 2 mg/2 ml Vial ONE; -SODIUM CHLORIDE 0.9% FS SCH; -SODIUM CHLORIDE 0.9% I-VITREAL SCH; -fentaNYL 50 mcg/mL 1 mL Vial ONE
[2022-11-08] MEDS ORDERED: Naloxone HCl 0.4 mg/ml Vial ONE (21:46)
[2022-11-08] MEDS ORDERED: Naloxone HCl 2 mg/2 ml Syringe ONE ×2 (21:51→21:52)
[2022-11-08 22:35] LABS: #Monocytes 0.5 thou/uL (0.11-0.59); #Neutrophils 11.8 thou/uL (1.40-6.50); %Basophils 0.2 % (0.0-1.0); %Eosinophils 0.1 % (0.0-10.0); %Lymphocytes 9.2 % (21.0-51.0); %Monocytes 3.3 % (0.0-10.0); %Neutrophils 86.9 % (42.0-75.0); Hemoglobin 13.6 g/dL (12.0-16.0); Mean Corpuscular HGB CONC 28.9 g/dL (32.0-36.0); Mean Corpuscular Hemoglobin 25.6 pg (27.0-31.0); Mean Corpuscular Volume 88.5 fl (78.0-98.0); Platelet Count 304 10x3/uL (130-400); RBC Distribution Width 21.8 % (11.5-14.5); Red Blood Cell (RBC) Count 5.32 mill/uL (4.20-5.40); White Blood Cell (WBC) Count 13.6 10x3/uL (4.8-10.8)
[2022-11-08 22:40] LABS: ALT (SGPT) 10 U/L (8-55); AST (SGOT) 13 U/L (5-34); Albumin 3.4 g/dL (3.4-4.8); Alkaline Phosphatase 76 U/L (40-110); Anion Gap 12 mmol/L (10-20); BUN (Urea Nitrogen) 18 mg/dL (9.8-20.1); Bilirubin, Total 0.2 mg/dL (0.2-1.2); Calc. Creatinine Clearance 0 mL/min (70-130); Calcium 9.2 mg/dL (7.8-10.44); Carbon Dioxide 19 mmol/L (23-31); Chloride 115 mmol/L (98-107); Estimated GFR 57; Globulin 2.7 g/dL (2.4-3.5); Glucose 107 mg/dL (83-110); Potassium 4.2 mmol/L (3.5-5.1); Protein, Total 6.1 g/dL (5.8-8.1); Sodium 142 mmol/L (136-145)
[2022-11-08] MEDS ORDERED: Dextrose 5% in Water 1,000 ML IV PRN (23:45)
[2022-11-08] MEDS ORDERED: Dextrose 50% Abboject 50 ML SYRINGE SLOW IVP PRN (23:45)
[2022-11-08] MEDS ORDERED: Glucagon 1 MG/ML KIT IM PRN (23:45)
[2022-11-08] MEDS ORDERED: hydrALAZINE 20 MG/ML VIAL SLOW IVP PRN (23:47)
[2022-11-09] MEDS ORDERED: Azithromycin 500 MG VIAL ONE (00:09)
[2022-11-09] MEDS ORDERED: cefTRIAXone (ROCEPHIN) 2 GM VIAL ONE (00:09)
[2022-11-09 00:14] LABS: Bacteria/HPF None Seen HPF (None Seen); Bilirubin Negative (Negative); Blood, Urine Trace (Negative); CAUTI Indications for Culture Alt mental st,lethar; Clarity Turbid (Clear); Glucose, Urine (Dipstick) Normal (Negative); Ketone, Urine 10 mg/dL (Negative); Leukocyte 500 Leu/uL (Negative); Nitrite Negative (Negative); Protein, Urine (Dipstick) 50 mg/dL (Neg-Trace); RBC/HPF 0-3 HPF (0-3); Squamous Epithelial 0-3 HPF (0-3); Urobilinogen Normal mg/dL (Less than 2); WBC/HPF Greater than 50 HPF (0-3)
[2022-11-09 00:15] LABS: Specific Gravity, Urine 1.048 (1.002-1.036)
[2022-11-09 00:16] LABS: Urine Culture Reflex Yes Yes
[2022-11-09 00:20] LABS: Amphetamine Not Detected (NotDetected); Barbiturates Screen Not Detected (NotDetected); Benzodiazepine Screen Detected (NotDetected); Cocaine Metabolite Screen Not Detected (NotDetected); Methadone Not Detected (NotDetected); Methamphetamine Not Detected (NotDetected); Opiate Screen Not Detected (NotDetected); Oxycodone Screen Not Detected (NotDetected); Phencyclidine (PCP) Not Detected (NotDetected); THC/Cannabinoid Screen Not Detected (NotDetected); Tricyclic Screen Not Detected (NotDetected)
[2022-11-09 04:00] VITALS: BMI 22.3
[2022-11-09 04:35] LABS: #Basophils 0.1 thou/uL (0.0-0.2); #Eosinphils 0.1 thou/uL (0.0-0.7); #Monocytes 0.8 thou/uL (0.11-0.59); #Neutrophils 14.9 thou/uL (1.40-6.50); %Basophils 0.3 % (0.0-1.0); %Eosinophils 0.4 % (0.0-10.0); %Lymphocytes 11.1 % (21.0-51.0); %Monocytes 4.5 % (0.0-10.0); %Neutrophils 82.9 % (42.0-75.0); Mean Corpuscular HGB CONC 29.6 g/dL (32.0-36.0); Mean Corpuscular Hemoglobin 25.6 pg (27.0-31.0); Mean Corpuscular Volume 86.5 fl (78.0-98.0); Mean Platelet Volume 9.9 fL (7.4-10.4); RBC Distribution Width 21.1 % (11.5-14.5); Red Blood Cell (RBC) Count 3.94 mill/uL (4.20-5.40)
[2022-11-09 04:44] LABS: Hemoglobin 10.1 g/dL (12.0-16.0)
[2022-11-09 04:45] LABS: Platelet Count 404 10x3/uL (130-400)
[2022-11-09 05:06] LABS: Anion Gap 14 mmol/L (10-20); BUN (Urea Nitrogen) 16 mg/dL (9.8-20.1); Calc. Creatinine Clearance 37 mL/min (70-130); Calcium 9.5 mg/dL (7.8-10.44); Carbon Dioxide 19 mmol/L (23-31); Chloride 116 mmol/L (98-107); Estimated GFR 59; Glucose 99 mg/dL (83-110); Magnesium 2.1 mg/dL (1.6-2.6); Potassium 3.4 mmol/L (3.5-5.1); Sodium 146 mmol/L (136-145)
[2022-11-09] MEDS ORDERED: Electrolyte Replacement Protocol 1 EACH FS SCH (08:30)
[2022-11-09] MEDS ORDERED: Potassium Chloride 40 MEQ in Sodium Chloride 0.45% 1,000 ML IV SCH (08:30)
[2022-11-09] MEDS ORDERED: Electrolyte Replacement Protocol FS PRN (09:00)
[2022-11-09] MEDS ORDERED: HumaLOG 300 UNITS/3 ML VIAL SC PRN ×2 (09:18)
[2022-11-09 09:20] LABS: Magnesium 1.9 mg/dL (1.6-2.6)
[2022-11-09] MEDS ORDERED: Cefepime 1 GM VIAL ONE ×2 (09:23→20:40)
[2022-11-09] MEDS ORDERED: Potassium Chloride 20 MEQ/100 ML PREMIX BAG ONE (09:23)
[2022-11-09] MEDS: Cefepime 1 GM in Sodium Chloride 0.9% 100 ML IVPB SCH ×2 (09:33→21:01)
[2022-11-09] MEDS: Potassium Chloride 20 MEQ in Premix Bag 1 BAG IVPB SCH ×2 (09:56→12:10)
[2022-11-09] MEDS ORDERED: Magnesium 2 GM/50 ML(in water) 2 GM in Premix Bag 1 BAG IVPB SCH (10:00)
[2022-11-09] MEDS ORDERED: Magnesium 2 GM/50 ML BAG (IN WATER) ONE (10:58)
[2022-11-09 17:13] LABS: Potassium 4.7 mmol/L (3.5-5.1)
[2022-11-09] MEDS: Azithromycin 500 MG in Sodium Chloride 0.9% 250 ML 250 ML IVPB SCH (23:38)
[2022-11-09] MEDS ORDERED: cefTRIAXone\\ROCEPHIN 2 GM in Sodium Chloride 0.9% 100 ML IVPB SCH (23:45)
[2022-11-10 08:22] LABS: #Basophils 0.1 thou/uL (0.0-0.2); #Eosinphils 0.2 thou/uL (0.0-0.7); #Monocytes 0.6 thou/uL (0.11-0.59); #Neutrophils 14.6 thou/uL (1.40-6.50); %Basophils 0.5 % (0.0-1.0); %Lymphocytes 6.7 % (21.0-51.0); %Monocytes 3.6 % (0.0-10.0); %Neutrophils 87.1 % (42.0-75.0); Hemoglobin 10.7 g/dL (12.0-16.0); Mean Corpuscular HGB CONC 28.9 g/dL (32.0-36.0); Mean Corpuscular Hemoglobin 25.8 pg (27.0-31.0); Mean Corpuscular Volume 89.2 fl (78.0-98.0); Mean Platelet Volume 10.2 fL (7.4-10.4); Platelet Count 433 10x3/uL (130-400); RBC Distribution Width 21.1 % (11.5-14.5); Red Blood Cell (RBC) Count 4.15 mill/uL (4.20-5.40); White Blood Cell (WBC) Count 16.8 10x3/uL (4.8-10.8)
[2022-11-10] MEDS: Cefepime 1 GM in Sodium Chloride 0.9% 100 ML IVPB SCH (08:22)
[2022-11-10 08:51] LABS: Anion Gap 13 mmol/L (10-20); BUN (Urea Nitrogen) 11 mg/dL (9.8-20.1); Calc. Creatinine Clearance 36 mL/min (70-130); Carbon Dioxide 19 mmol/L (23-31); Chloride 110 mmol/L (98-107); Estimated GFR 60; Glucose 125 mg/dL (83-110); Potassium 3.9 mmol/L (3.5-5.1); Sodium 138 mmol/L (136-145)
[2022-11-10 09:05] LABS: CellaVision Operator ID LAB.GE; Platelet Adequacy Comment Platelets Increased; Polychromasia MODERATE = 3-4 cells HPF (0-2)
[2022-11-10] MEDS ORDERED: Iopamidol-370 76% 500 ML MDV (1 ML CHARGE) ONE (09:26)
[2022-11-10] MEDS: Losartan 25 MG TAB PO SCH (21:03)
[2022-11-10] MEDS ORDERED: Melatonin 3 MG TAB PO PRN (21:25)
[2022-11-11] MEDS: Cefepime 1 GM in Sodium Chloride 0.9% 100 ML IVPB SCH ×3 (00:30→20:47)
[2022-11-11] MEDS: Azithromycin 500 MG in Sodium Chloride 0.9% 250 ML 250 ML IVPB SCH (01:21)
[2022-11-11] MEDS: Escitalopram Oxalate 10 mg Tablet PO SCH (08:25)
[2022-11-11 10:42] LABS: #Monocytes 0.7 thou/uL (0.11-0.59); #Neutrophils 14.6 thou/uL (1.40-6.50); %Basophils 0.2 % (0.0-1.0); %Eosinophils 0.2 % (0.0-10.0); %Lymphocytes 5.8 % (21.0-51.0); %Monocytes 4.3 % (0.0-10.0); Hemoglobin 9.7 g/dL (12.0-16.0); Mean Corpuscular HGB CONC 30.1 g/dL (32.0-36.0); Mean Corpuscular Hemoglobin 25.7 pg (27.0-31.0); Mean Corpuscular Volume 85.4 fl (78.0-98.0); Mean Platelet Volume 10.6 fL (7.4-10.4); Platelet Count 457 10x3/uL (130-400); RBC Distribution Width 20.4 % (11.5-14.5); Red Blood Cell (RBC) Count 3.77 mill/uL (4.20-5.40); White Blood Cell (WBC) Count 16.4 10x3/uL (4.8-10.8)
[2022-11-11 11:04] LABS: Anion Gap 12 mmol/L (10-20); BUN (Urea Nitrogen) 10 mg/dL (9.8-20.1); Calc. Creatinine Clearance 37 mL/min (70-130); Calcium 9.7 mg/dL (7.8-10.44); Carbon Dioxide 21 mmol/L (23-31); Chloride 105 mmol/L (98-107); Estimated GFR 61; Glucose 194 mg/dL (83-110); Potassium 3.9 mmol/L (3.5-5.1); Sodium 134 mmol/L (136-145)
[2022-11-11] MEDS: Losartan 25 MG TAB PO SCH (20:47)
[2022-11-11] MEDS: Melatonin 3 MG TAB PO PRN (20:48)
[2022-11-12] MEDS: Azithromycin 500 MG in Sodium Chloride 0.9% 250 ML 250 ML IVPB SCH (00:23)
[2022-11-12 04:46] LABS: #Basophils 0.1 thou/uL (0.0-0.2); #Eosinphils 0.2 thou/uL (0.0-0.7); #Monocytes 0.8 thou/uL (0.11-0.59); #Neutrophils 9.4 thou/uL (1.40-6.50); %Basophils 0.4 % (0.0-1.0); %Eosinophils 1.3 % (0.0-10.0); %Lymphocytes 11.9 % (21.0-51.0); %Neutrophils 78.9 % (42.0-75.0); Hemoglobin 10.3 g/dL (12.0-16.0); Mean Corpuscular HGB CONC 29.1 g/dL (32.0-36.0); Mean Corpuscular Hemoglobin 25.2 pg (27.0-31.0); Mean Corpuscular Volume 86.8 fl (78.0-98.0); Mean Platelet Volume 10.9 fL (7.4-10.4); Platelet Count 432 10x3/uL (130-400); RBC Distribution Width 20.3 % (11.5-14.5); Red Blood Cell (RBC) Count 4.08 mill/uL (4.20-5.40); White Blood Cell (WBC) Count 11.9 10x3/uL (4.8-10.8)
[2022-11-12 05:10] LABS: Anion Gap 13 mmol/L (10-20); BUN (Urea Nitrogen) 9 mg/dL (9.8-20.1); Calc. Creatinine Clearance 37 mL/min (70-130); Calcium 10.2 mg/dL (7.8-10.44); Carbon Dioxide 21 mmol/L (23-31); Chloride 105 mmol/L (98-107); Estimated GFR 62; Glucose 122 mg/dL (83-110); Sodium 135 mmol/L (136-145)
[2022-11-12] MEDS: Cefepime 1 GM in Sodium Chloride 0.9% 100 ML IVPB SCH (10:14)
[2022-11-12] MEDS: Escitalopram Oxalate 10 mg Tablet PO SCH (10:15)
[2022-11-12] MEDS: hydrALAZINE 25 MG TAB PO SCH ×2 (14:31→20:05)
[2022-11-12] MEDS: Melatonin 3 MG TAB PO PRN (20:04)
[2022-11-12] MEDS: Losartan 25 MG TAB PO SCH (20:04)
[2022-11-12] MEDS: Cefdinir 300 MG CAP PO SCH (20:05)
[2022-11-12] MEDS: Doxycycline 100 MG CAP PO SCH (20:05)
[2022-11-13 04:14] LABS: #Basophils 0.1 thou/uL (0.0-0.2); #Eosinphils 0.2 thou/uL (0.0-0.7); #Monocytes 0.7 thou/uL (0.11-0.59); #Neutrophils 5.5 thou/uL (1.40-6.50); %Basophils 0.9 % (0.0-1.0); %Eosinophils 2.9 % (0.0-10.0); %Lymphocytes 15.9 % (21.0-51.0); %Monocytes 9.3 % (0.0-10.0); %Neutrophils 70.4 % (42.0-75.0); Hemoglobin 9.9 g/dL (12.0-16.0); Mean Corpuscular HGB CONC 29.3 g/dL (32.0-36.0); Mean Corpuscular Volume 85.4 fl (78.0-98.0); Mean Platelet Volume 10.2 fL (7.4-10.4); Platelet Count 423 10x3/uL (130-400); RBC Distribution Width 19.9 % (11.5-14.5); Red Blood Cell (RBC) Count 3.96 mill/uL (4.20-5.40); White Blood Cell (WBC) Count 7.9 10x3/uL (4.8-10.8)
[2022-11-13 04:33] LABS: Anion Gap 11 mmol/L (10-20); BUN (Urea Nitrogen) 9 mg/dL (9.8-20.1); Calc. Creatinine Clearance 38 mL/min (70-130); Calcium 10.2 mg/dL (7.8-10.44); Carbon Dioxide 25 mmol/L (23-31); Chloride 106 mmol/L (98-107); Estimated GFR 63; Glucose 114 mg/dL (83-110); Potassium 3.7 mmol/L (3.5-5.1); Sodium 138 mmol/L (136-145)
[2022-11-13] MEDS: hydrALAZINE 25 MG TAB PO SCH ×3 (09:03→20:17)
[2022-11-13] MEDS: Escitalopram Oxalate 10 mg Tablet PO SCH (09:03)
[2022-11-13] MEDS: Doxycycline 100 MG CAP PO SCH ×2 (09:03→20:16)
[2022-11-13] MEDS: Cefdinir 300 MG CAP PO SCH ×2 (09:03→20:16)
[2022-11-13] MEDS: Ciprofloxacin 0.3% Ophth Soln 2.5 ml Bottle R EYE SCH ×4 (11:16→20:16)
[2022-11-13] MEDS: Losartan 25 MG TAB PO SCH (20:16)
[2022-11-13] MEDS: Melatonin 3 MG TAB PO PRN (20:17)
[2022-11-14] MEDS: Ciprofloxacin 0.3% Ophth Soln 2.5 ml Bottle R EYE SCH ×6 (01:10→20:14)
[2022-11-14 04:44] LABS: #Basophils 0.1 thou/uL (0.0-0.2); #Eosinphils 0.4 thou/uL (0.0-0.7); #Monocytes 0.6 thou/uL (0.11-0.59); #Neutrophils 5.6 thou/uL (1.40-6.50); %Eosinophils 4.3 % (0.0-10.0); %Lymphocytes 17.8 % (21.0-51.0); %Monocytes 7.7 % (0.0-10.0); %Neutrophils 68.2 % (42.0-75.0); Hemoglobin 9.6 g/dL (12.0-16.0); Mean Corpuscular HGB CONC 29.1 g/dL (32.0-36.0); Mean Corpuscular Hemoglobin 24.9 pg (27.0-31.0); Mean Corpuscular Volume 85.7 fl (78.0-98.0); Mean Platelet Volume 10.3 fL (7.4-10.4); Platelet Count 466 10x3/uL (130-400); RBC Distribution Width 19.9 % (11.5-14.5); Red Blood Cell (RBC) Count 3.85 mill/uL (4.20-5.40); White Blood Cell (WBC) Count 8.2 10x3/uL (4.8-10.8)
[2022-11-14 05:06] LABS: Anion Gap 11 mmol/L (10-20); BUN (Urea Nitrogen) 13 mg/dL (9.8-20.1); Calc. Creatinine Clearance 31 mL/min (70-130); Calcium 10.2 mg/dL (7.8-10.44); Carbon Dioxide 25 mmol/L (23-31); Chloride 105 mmol/L (98-107); Estimated GFR 49; Glucose 107 mg/dL (83-110); Potassium 3.8 mmol/L (3.5-5.1); Sodium 137 mmol/L (136-145)
[2022-11-14] MEDS: Escitalopram Oxalate 10 mg Tablet PO SCH (08:26)
[2022-11-14] MEDS: hydrALAZINE 25 MG TAB PO SCH ×3 (08:26→20:11)
[2022-11-14] MEDS: Doxycycline 100 MG CAP PO SCH ×2 (08:26→20:11)
[2022-11-14] MEDS: Cefdinir 300 MG CAP PO SCH ×2 (08:26→20:10)
[2022-11-14] MEDS: Losartan 25 MG TAB PO SCH (20:10)
[2022-11-14] MEDS: Melatonin 3 MG TAB PO PRN (20:11)
[2022-11-15] MEDS: Ciprofloxacin 0.3% Ophth Soln 2.5 ml Bottle R EYE SCH ×6 (01:39→20:22)
[2022-11-15] MEDS: hydrALAZINE 25 MG TAB PO SCH ×3 (08:22→20:17)
[2022-11-15] MEDS: Escitalopram Oxalate 10 mg Tablet PO SCH (08:22)
[2022-11-15] MEDS: Cefdinir 300 MG CAP PO SCH ×2 (08:22→20:17)
[2022-11-15] MEDS: Doxycycline 100 MG CAP PO SCH ×2 (08:23→20:17)
[2022-11-15] MEDS: Losartan 25 MG TAB PO SCH (20:17)
[2022-11-15] MEDS: Melatonin 3 MG TAB PO PRN (22:16)
[2022-11-16] MEDS: Ciprofloxacin 0.3% Ophth Soln 2.5 ml Bottle R EYE SCH ×5 (01:50→18:53)
[2022-11-16 04:43] LABS: #Basophils 0.1 thou/uL (0.0-0.2); #Eosinphils 0.3 thou/uL (0.0-0.7); #Monocytes 0.7 thou/uL (0.11-0.59); #Neutrophils 5.3 thou/uL (1.40-6.50); %Basophils 1.3 % (0.0-1.0); %Eosinophils 3.8 % (0.0-10.0); %Lymphocytes 18.7 % (21.0-51.0); %Monocytes 8.3 % (0.0-10.0); Hemoglobin 9.9 g/dL (12.0-16.0); Mean Corpuscular HGB CONC 29.2 g/dL (32.0-36.0); Mean Corpuscular Hemoglobin 25.4 pg (27.0-31.0); Mean Corpuscular Volume 86.9 fl (78.0-98.0); Mean Platelet Volume 10.6 fL (7.4-10.4); Platelet Count 488 10x3/uL (130-400); RBC Distribution Width 19.4 % (11.5-14.5); White Blood Cell (WBC) Count 7.9 10x3/uL (4.8-10.8)
[2022-11-16 05:05] LABS: Anion Gap 12 mmol/L (10-20); Calcium 10.3 mg/dL (7.8-10.44); Carbon Dioxide 23 mmol/L (23-31); Chloride 105 mmol/L (98-107); Potassium 4.1 mmol/L (3.5-5.1); Sodium 136 mmol/L (136-145)
[2022-11-16 05:11] LABS: BUN (Urea Nitrogen) 21 mg/dL (9.8-20.1); Calc. Creatinine Clearance 28 mL/min (70-130); Estimated GFR 49; Glucose 116 mg/dL (83-110)
[2022-11-16] MEDS: Doxycycline 100 MG CAP PO SCH ×2 (10:13→20:52)
[2022-11-16] MEDS: Escitalopram Oxalate 10 mg Tablet PO SCH (10:13)
[2022-11-16] MEDS: hydrALAZINE 25 MG TAB PO SCH ×3 (10:14→20:52)
[2022-11-16] MEDS: Cefdinir 300 MG CAP PO SCH ×2 (10:15→20:52)
[2022-11-16] MEDS: Losartan 25 MG TAB PO SCH (20:53)
[2022-11-17 04:51] LABS: #Basophils 0.1 thou/uL (0.0-0.2); #Eosinphils 0.3 thou/uL (0.0-0.7); #Monocytes 0.6 thou/uL (0.11-0.59); %Basophils 1.4 % (0.0-1.0); %Eosinophils 4.2 % (0.0-10.0); %Lymphocytes 22.5 % (21.0-51.0); %Monocytes 9.2 % (0.0-10.0); %Neutrophils 61.8 % (42.0-75.0); Hemoglobin 10.3 g/dL (12.0-16.0); Mean Corpuscular HGB CONC 29.7 g/dL (32.0-36.0); Mean Corpuscular Hemoglobin 25.1 pg (27.0-31.0); Mean Corpuscular Volume 84.6 fl (78.0-98.0); Mean Platelet Volume 10.5 fL (7.4-10.4); Platelet Count 462 10x3/uL (130-400); RBC Distribution Width 19.3 % (11.5-14.5); White Blood Cell (WBC) Count 6.5 10x3/uL (4.8-10.8)
[2022-11-17 05:14] LABS: Anion Gap 12 mmol/L (10-20); BUN (Urea Nitrogen) 21 mg/dL (9.8-20.1); Calc. Creatinine Clearance 25 mL/min (70-130); Calcium 10.5 mg/dL (7.8-10.44); Carbon Dioxide 23 mmol/L (23-31); Chloride 105 mmol/L (98-107); Estimated GFR 40; Glucose 120 mg/dL (83-110); Potassium 4.3 mmol/L (3.5-5.1); Sodium 136 mmol/L (136-145)
[2022-11-17] MEDS: Ciprofloxacin 0.3% Ophth Soln 2.5 ml Bottle R EYE SCH ×4 (07:00→18:37)
[2022-11-17] MEDS: Cefdinir 300 MG CAP PO SCH (08:49)
[2022-11-17] MEDS: Doxycycline 100 MG CAP PO SCH (08:50)
[2022-11-17] MEDS: Escitalopram Oxalate 10 mg Tablet PO SCH (08:50)
[2022-11-17] MEDS: hydrALAZINE 25 MG TAB PO SCH ×3 (08:50→21:16)
[2022-11-17] MEDS: Losartan 25 MG TAB PO SCH (21:16)
[2022-11-18 04:49] LABS: #Basophils 0.1 thou/uL (0.0-0.2); #Eosinphils 0.3 thou/uL (0.0-0.7); #Monocytes 0.6 thou/uL (0.11-0.59); #Neutrophils 4.6 thou/uL (1.40-6.50); %Basophils 1.2 % (0.0-1.0); %Eosinophils 4.6 % (0.0-10.0); %Lymphocytes 18.9 % (21.0-51.0); %Monocytes 8.1 % (0.0-10.0); Hemoglobin 10.6 g/dL (12.0-16.0); Mean Corpuscular HGB CONC 28.9 g/dL (32.0-36.0); Mean Corpuscular Hemoglobin 25.9 pg (27.0-31.0); Mean Platelet Volume 10.4 fL (7.4-10.4); Platelet Count 462 10x3/uL (130-400); RBC Distribution Width 19.5 % (11.5-14.5); White Blood Cell (WBC) Count 6.9 10x3/uL (4.8-10.8)
[2022-11-18 05:27] LABS: Anion Gap 14 mmol/L (10-20); BUN (Urea Nitrogen) 25 mg/dL (9.8-20.1); Calc. Creatinine Clearance 27 mL/min (70-130); Calcium 10.4 mg/dL (7.8-10.44); Carbon Dioxide 22 mmol/L (23-31); Chloride 104 mmol/L (98-107); Estimated GFR 46; Glucose 118 mg/dL (83-110); Potassium 4.2 mmol/L (3.5-5.1); Sodium 136 mmol/L (136-145)
[2022-11-18 07:09] LABS: Anisocytosis MODERATE=16-30 cells HPF (0-5); Burr Cells SLIGHT = 2-5 cells HPF (0-1); CellaVision Operator ID LAB.JMM; Elliptocytes SLIGHT = 2-5 cells HPF (0-1); Macrocytosis SLIGHT = 6-15 cells HPF (0-5); Platelet Adequacy Comment Platelets Normal; Polychromasia SLIGHT = 2-3 cells HPF (0-2); Tear Drops SLIGHT = 2-5 cells HPF (0-1)
[2022-11-18 07:13] LABS: Mean Corpuscular Volume 89.5 fl (78.0-98.0)
[2022-11-18] MEDS: Escitalopram Oxalate 10 mg Tablet PO SCH (09:17)
[2022-11-18] MEDS: hydrALAZINE 25 MG TAB PO SCH ×2 (09:17→14:52)
[2022-11-18 12:07] VITALS: BP 167/70; TEMP 97
== END 2022-11-18 16:24 | disposition home or self-care (01) | DRG 193 ==
LOC: SUATTDRO 21:16 → ERS 21:16 → ERHOLD 23:34 → IMCU/EMU 11-09 14:37 → 2NO 11-11 12:26
PROVIDERS: ADMIT Family Medicine; ATTEND Internal Medicine
DX: J18.9 Pneumonia, unspecified organism (principal); G93.41 Metabolic encephalopathy; N39.0 Urinary tract infection, site not specified; E87.0 Hyperosmolality and hypernatremia; E87.1 Hypo-osmolality and hyponatremia; E11.9 Type 2 diabetes mellitus without complications; I10 Essential (primary) hypertension; E78.5 Hyperlipidemia, unspecified; R00.0 Tachycardia, unspecified; E78.00 Pure hypercholesterolemia, unspecified; G89.29 Other chronic pain; M54.9 Dorsalgia, unspecified; R53.81 Other malaise; Z66 Do not resuscitate; E87.6 Hypokalemia; E87.8 Other disorders of electrolyte and fluid balance, not elsewhere classified; B96.20 Unspecified Escherichia coli [E. coli] as the cause of diseases classified elsewhere; Z90.49 Acquired absence of other specified parts of digestive tract; Z88.8 Allergy status to other drugs, medicaments and biological substances; Z79.899 Other long term (current) drug therapy; Z90.710 Acquired absence of both cervix and uterus; Z90.89 Acquired absence of other organs
CPT/HCPCS: 36415; 36416; 51701; 70450; 70496; 70498; 70551; 71045; 71275; 74230; 80048; 80053; 80306; 81001; 82274; 83605; 83735; 84100; 84145; 84443; 84484; 85025; 85379; 87040; 87077; 87086; 87186; 87324; 87449; 93005; 93010; 93306; 96365; 96367; 96375; J0360; J0456; J0692; J0696; J1650; J2310; J3475; J3480; J3490; J7050; Q9967